=== PATIENT | male | born 1940 | race Caucasian/White ===

== ENCOUNTER 2019-08-29 16:43 | Outpatient (CLI) | payer MEDICARE, SELFPAY ==
[2019-08-29 18:15] LABS: Blood Urea Nitrogen 23 mg/dL (9-20); Calcium 9.2 mg/dL (8.4-10.2); Carbon Dioxide 28 mmol/L (22-30); Chloride 100 mmol/L (98-107); Estimated Glomerular Filt Rate 35; Glucose 119 mg/dL (75-110); Potassium 4.6 mmol/L (3.4-5.0); Sodium 140 mmol/L (137-145)
[2019-08-29 18:45] LABS: Hemoglobin A1C 5.9 % (<5.7)
[2019-08-29 19:22] LABS: Folic Acid 14.9 ng/mL (2.76->20)
== END 2019-08-29 16:44 | disposition home or self-care (01) ==
PROVIDERS: PCP Internal Medicine; Visit Provider Internal Medicine
DX: I10 Essential (primary) hypertension (principal); E11.9 Type 2 diabetes mellitus without complications; D51.0 Vitamin B12 deficiency anemia due to intrinsic factor deficiency; E03.9 Hypothyroidism, unspecified; E55.9 Vitamin D deficiency, unspecified
CPT/HCPCS: 36415; 80048; 82306; 82607; 82746; 83036; 84443

== ENCOUNTER 2019-09-20 17:06 | Outpatient (CLI) | payer MEDICARE, SELFPAY ==
[2019-09-20 17:27] LABS: Basophils Percent Auto 0.7 % (0.2-1.2); Eosinophils Absolute Auto 0.1 K/mm3 (0-0.3); Eosinophils Percent Auto 2.4 % (0-4.4); Hematocrit 42.5 % (42.0-52.0); Hemoglobin 14.3 g/dL (14.0-18.0); Immature Granulocyte Absolute 0.05 K/mm3 (0.00-0.031); Immature Granulocyte Percent A 1.1 % (0-0.5); Immature Platelet Fraction Pct 2.6 % (0.9-11.2); Mean Corpuscular HGB Conc 33.6 g/dl (32-36); Mean Corpuscular Volume 86.2 fl (80-100); Mean Platelet Volume 10.1 fl (7.4-10.4); Monocytes Absolute Auto 0.3 K/mm3 (0.1-0.6); Neutrophils Absolute Auto 2.7 K/mm3 (1.3-6.7); Neutrophils Percent Auto 60.8 % (45.5-73.1); Platelet Count Result 137 k/mm3 (150-375); Red Blood Count 4.93 M/mm3 (4.6-6.20); Red Cell Distribution Width 14.3 % (11.5-14.5); White Blood Count 4.5 K/mm3 (4.5-10.0)
[2019-09-20 18:30] LABS: Creatinine Urine 28.4 mg/dL
[2019-09-20 18:34] LABS: MALB Creatinine Ratio 51.1 mg/g (0-30); Microalbumin Urine Random 14.5 mg/L (0-16.7)
[2019-09-20 18:44] LABS: Alanine Aminotransferase 26 U/L (4-50); Alkaline Phosphatase 63 U/L (38-126); Aspartate Amino Transferase 21 U/L (17-59); Bilirubin,Total 0.4 mg/dL (0.2-1.3); Blood Urea Nitrogen 15 mg/dL (9-20); Calcium 8.9 mg/dL (8.4-10.2); Carbon Dioxide 29 mmol/L (22-30); Chloride 104 mmol/L (98-107); Cholesterol 144 mg/dL (0-200); Estimated Glomerular Filt Rate 42; Glucose 123 mg/dL (75-110); HDL Direct 55 mg/dL; Sodium 141 mmol/L (137-145); Triglycerides 91 mg/dL (<150)
[2019-09-20 18:55] LABS: LDL Cholesterol Direct 76 mg/dL
== END 2019-09-20 17:07 | disposition home or self-care (01) ==
PROVIDERS: PCP Internal Medicine; Visit Provider Nurse Practitioner
DX: E11.9 Type 2 diabetes mellitus without complications (principal); E03.9 Hypothyroidism, unspecified; D63.1 Anemia in chronic kidney disease; N18.9 Chronic kidney disease, unspecified
CPT/HCPCS: 36415; 80053; 80061; 82043; 83036; 84443; 85025; 85055

== ENCOUNTER 2020-03-06 16:09 | Outpatient (CLI) | payer MEDICARE, SELFPAY ==
[2020-03-06 17:38] LABS: Basophils Percent Auto 0.6 % (0.2-1.2); Eosinophils Absolute Auto 0.1 K/mm3 (0-0.3); Eosinophils Percent Auto 1.7 % (0-4.4); Hematocrit 45.4 % (42.0-52.0); Hemoglobin 15.3 g/dL (14.0-18.0); Immature Granulocyte Absolute 0.02 K/mm3 (0.00-0.031); Immature Granulocyte Percent A 0.3 % (0-0.5); Immature Platelet Fraction Pct 3.3 % (0.9-11.2); Lymphocytes Absolute Auto 1.36 K/mm3 (0.9-3.2); Lymphocytes Percent Auto 20.8 % (18.3-44.2); Mean Corpuscular HGB Conc 33.7 g/dl (32-36); Mean Corpuscular Hemoglobin 28.5 pg (26-34); Mean Corpuscular Volume 84.7 fl (80-100); Mean Platelet Volume 10.6 fl (7.4-10.4); Monocytes Absolute Auto 0.7 K/mm3 (0.1-0.6); Monocytes Percent Auto 10.9 % (2.6-8.5); Neutrophils Absolute Auto 4.3 K/mm3 (1.3-6.7); Neutrophils Percent Auto 65.7 % (45.5-73.1); Platelet Count Result 122 k/mm3 (150-375); Red Blood Count 5.36 M/mm3 (4.6-6.20); White Blood Count 6.5 K/mm3 (4.5-10.0)
[2020-03-06 17:49] LABS: Alanine Aminotransferase 9 U/L (4-50); Albumin Level 4.5 g/dL (3.5-5.1); Alkaline Phosphatase 70 U/L (38-126); Anion Gap 9 mmol/L (8-16); Aspartate Amino Transferase 14 U/L (17-59); Bilirubin,Total 0.8 mg/dL (0.2-1.3); Blood Urea Nitrogen 26 mg/dL (9-20); Calcium 9.2 mg/dL (8.4-10.2); Carbon Dioxide 27 mmol/L (22-30); Chloride 101 mmol/L (98-107); Cholesterol 154 mg/dL (0-200); Estimated Glomerular Filt Rate 35; Glucose 146 mg/dL (75-110); HDL Direct 60 mg/dL; Potassium 4.3 mmol/L (3.4-5.0); Sodium 137 mmol/L (137-145); Triglycerides 70 mg/dL (<150)
[2020-03-06 18:00] LABS: LDL Cholesterol Direct 68 mg/dL
[2020-03-06 18:15] LABS: Hemoglobin A1C 5.8 % (<5.7)
[2020-03-06 18:19] LABS: Thyroid Stimulating Hormone 0.201 uIU/mL (0.465-4.680)
== END 2020-03-06 16:10 | disposition home or self-care (01) ==
LOC: ANHLAB 16:14
PROVIDERS: PCP Internal Medicine; Visit Provider Nurse Practitioner
DX: E03.9 Hypothyroidism, unspecified (principal); N18.9 Chronic kidney disease, unspecified; D63.1 Anemia in chronic kidney disease; E11.9 Type 2 diabetes mellitus without complications
CPT/HCPCS: 36415; 80053; 80061; 83036; 84443; 85025; 85055

== ENCOUNTER 2020-03-21 00:31 | Outpatient (CLI) | payer MEDICARE, SELFPAY ==
[2020-03-22 13:39] LABS: SARS-CoV-2 RNA PCR Negative
== END 2020-03-21 00:32 | disposition home or self-care (01) ==
LOC: ANHCOVIDDT 00:31
PROVIDERS: PCP Internal Medicine; Visit Provider Internal Medicine Gastroenterology
DX: Z01.812 Encounter for preprocedural laboratory examination (principal); Z11.59 Encounter for screening for other viral diseases
CPT/HCPCS: 87635; C9803; U0003

== ENCOUNTER 2020-03-24 01:31 | Day surgery (SDC) | payer MEDICARE, SELFPAY ==
[2020-03-14 09:04] VITALS: BMI 32.0
[2020-03-24] MEDS: LACTATED RINGERS 1,000 ML 150 ML IV CONT (08:03)
[2020-03-24 08:06] VITALS: BP 152/94; PULSE 63; RESP 18; TEMP 36.6; O2SAT 99; BMI 30.4
[2020-03-24 08:07] LABS: Glucose Point of Care 92 (65-105)
--- NOTE | 2020-03-24 08:40 | P.HP_ITS ---
History of Present Illness History of Present Illness Consent: Risks, benefits, and alternatives have been discussed and questions answered. Patient agrees to proceed with procedure. Chief complaint: neoplasm screening Narrative: Renzo Guadalupe is a 79 year old W male with a history of adenocarcinoma the left colon diagnosed in 2005. Patient underwent partial left colon resection. Did not receive any chemotherapy reportedly lymph nodes were negative. For patient had a colonoscopy in 2006 in [facility]. Three small polyps removed. I saw the patient for the 1st time in 2010 for colonoscopy in the transverse colon tubular adenoma was removed. Shortly thereafter patient had a CT scan of the abdomen and pelvis for another reason was found to have metastatic disease to the liver and renal lesion. 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 Patient's last CT scan was approximately 5 years ago there was no evidence of disease. He was referred for colonoscopy secondary to his previous history of colon cancer and increasing constipation. [facility] Surgical History Surgical History (Updated 09/03/19 @ 13:34 by JERMAINE Andres) S/P tooth extraction Social History Social History Smoking status: Never smoker Alcohol intake: never Living arrangements: with family Spiritual care concerns: No Meds Home Medications and Allergies Home Medications Medication Instructions Recorded Confirmed Type lisinopril 20 mg tablet See Rx Instructions .ROUTE 10/22/19 03/14/20 Rx .COMPLEX #180 tablet amlodipine 5 mg tablet 5 mg PO DAILY #90 tablet 12/25/19 03/14/20 Rx omeprazole 20 mg capsule,delayed See Rx Instructions .ROUTE 01/07/20 03/14/20 Rx release .COMPLEX #90 cap tamsulosin 0.4 mg capsule 0.4 mg PO DAILY #90 cap 03/03/20 03/14/20 Rx levothyroxine 112 mcg tablet 112 mcg PO DAILY #90 tablet 03/11/20 03/14/20 Rx terazosin 1 mg PO DAILY 03/14/20 03/14/20 History linagliptin 5 mg tablet 5 mg PO DAILY #90 tablet 03/18/20 03/24/20 Rx Allergies Allergy/AdvReac Type Severity Reaction Status Date / Time No Known Allergies Allergy Unverified 03/24/20 07:53 Vital Signs Vital Signs - 24 hr 03/24/20 08:06 Temperature 36.6 C Pulse Rate 63 Respiratory Rate 18 Blood Pressure 152/94 H Pulse Oximetry 99 Exam Const: Orientation/consciousness: patient oriented x3 Resp: Auscultation: clear to auscultation bilaterally Cardio: Rate: regular rate Rhythm: regular rhythm Heart sounds: no murmurs GI: GI Palp: Yes Soft to palpation, No Tenderness to palpation present (GI), Yes No hepatosplenomegaly present and No Palpable mass present Auscultation: normal bowel sounds Neuro: General: patient oriented x3 and no focal motor deficits Extrem: General: no pedal edema Assessment and Plan Additional Plan Screening colonoscopy secondary history of metastatic colon cancer as described above
--- NOTE | 2020-03-24 08:46 | WPDANESEPPF ---
Anes - Initial Pre Proc Eval Procedure: Operation Date: 03/24/20 09:00 Proposed Procedures p Screening Colonoscopy - Carlos Allen MD Date/Time: 03/24/20 08:46 Surgeon: Carlos Allen MD Pre Op Diagnosis: neoplasm screening Patient Data Age: 79 Gender: M Height: 6 ft 1 in Weight: 104.9 kg Last Vital Signs Temp 97.8 F 03/24/20 08:06 Pulse 63 03/24/20 08:06 Resp 18 03/24/20 08:06 BP 152/94 H 03/24/20 08:06 Pulse Ox 99 03/24/20 08:06 Allergies Allergy/AdvReac Type Severity Reaction Status Date / Time No Known Allergies Allergy Unverified 03/24/20 07:53 Home Medications Medication Instructions Recorded Confirmed Type lisinopril 20 mg tablet See Rx Instructions .ROUTE 10/22/19 03/14/20 Rx .COMPLEX #180 tablet amlodipine 5 mg tablet 5 mg PO DAILY #90 tablet 12/25/19 03/14/20 Rx omeprazole 20 mg capsule,delayed See Rx Instructions .ROUTE 01/07/20 03/14/20 Rx release .COMPLEX #90 cap tamsulosin 0.4 mg capsule 0.4 mg PO DAILY #90 cap 03/03/20 03/14/20 Rx levothyroxine 112 mcg tablet 112 mcg PO DAILY #90 tablet 03/11/20 03/14/20 Rx terazosin 1 mg PO DAILY 03/14/20 03/14/20 History linagliptin 5 mg tablet 5 mg PO DAILY #90 tablet 03/18/20 03/24/20 Rx Laboratory Tests 03/24/20 08:01 POC Capillary Glucose 92 mg/dl mg/dl (65-105) Patient hx anesthesia problems: none Family hx anesthesia problems: none PMFSH Past Medical History Medical History (Updated 03/24/20 @ 08:46 by Abdoulaye Escamilla MD) Essential (primary) hypertension (02/28/19) Hypothyroidism, unspecified Type 2 diabetes mellitus without complications Surgical History Surgical History (Updated 09/03/19 @ 13:34 by JERMAINE Andres) S/P tooth extraction Social History Social History Smoking status: Never smoker Alcohol intake: never Living arrangements: with family Spiritual care concerns: No Anes - Eval Final PreProcedure Day of Procedure 03/24/20 08:46 Patient weight: overweight Heart: regular rate and rhythm Lungs: clear to auscultation Airway: Mallampati scale class III Neurological: alert and oriented Last oral intake: >/= 8 hours ASA classification: III Emergent: no Anesthetic plan: proceed Anesthesia type and monitoring: general GIVS and standard monitoring Informed Consent: The patient's anesthetic plan and its attendant risks and benefits were discussed with the patient/family/POA. Questions were solicited and answers provided to the satisfaction of the patient/family/POA.
[2020-03-24 10:18] VITALS: BP 113/67; PULSE 56; RESP 14; O2SAT 99
[2020-03-24 10:28] VITALS: BP 124/64; PULSE 69; RESP 14; O2SAT 99
[2020-03-24 10:38] VITALS: BP 134/73; PULSE 58; RESP 14; O2SAT 99
== END 2020-03-24 10:59 | disposition home or self-care (01) ==
PROVIDERS: PCP Internal Medicine; Visit Provider Internal Medicine Gastroenterology
PROC: 0DJD8ZZ Inspection of Lower Intestinal Tract, Via Natural or Artificial Opening Endoscopic (ICD-10-PCS; CPT 45378; principal; 2020-03-24 09:00)
DX: Z12.11 Encounter for screening for malignant neoplasm of colon (principal); D12.0 Benign neoplasm of cecum; D12.2 Benign neoplasm of ascending colon; K64.8 Other hemorrhoids; Z85.038 Personal history of other malignant neoplasm of large intestine; Z98.0 Intestinal bypass and anastomosis status; Z90.49 Acquired absence of other specified parts of digestive tract; I10 Essential (primary) hypertension; E03.9 Hypothyroidism, unspecified; E11.9 Type 2 diabetes mellitus without complications; Z79.84 Long term (current) use of oral hypoglycemic drugs; Z85.05 Personal history of malignant neoplasm of liver; Z85.528 Personal history of other malignant neoplasm of kidney; Z90.5 Acquired absence of kidney
CPT/HCPCS: 45385; 88305; J2704; J7120

== ENCOUNTER 2020-08-11 17:00 | Outpatient (CLI) | payer MEDICARE, SELFPAY ==
[2020-08-11 17:54] LABS: Alanine Aminotransferase 9 U/L (4-50); Albumin Level 4.2 g/dL (3.5-5.1); Alkaline Phosphatase 70 U/L (38-126); Anion Gap 4 mmol/L (8-16); Aspartate Amino Transferase 17 U/L (17-59); Bilirubin,Total 0.7 mg/dL (0.2-1.3); Blood Urea Nitrogen 14 mg/dL (9-20); Calcium 9.3 mg/dL (8.4-10.2); Carbon Dioxide 30 mmol/L (22-30); Chloride 108 mmol/L (98-107); Cholesterol 169 mg/dL (0-200); Estimated Glomerular Filt Rate 39; Glucose 125 mg/dL (75-110); HDL Direct 70 mg/dL; Potassium 4.1 mmol/L (3.4-5.0); Sodium 142 mmol/L (137-145); Triglycerides 79 mg/dL (<150)
[2020-08-11 18:05] LABS: LDL Cholesterol Direct 79 mg/dL
[2020-08-11 18:19] LABS: Hemoglobin A1C 5.5 % (<5.7)
[2020-08-11 18:24] LABS: Thyroid Stimulating Hormone 0.234 uIU/mL (0.465-4.680)
== END 2020-08-11 17:01 | disposition home or self-care (01) ==
LOC: ANHLAB 17:03
PROVIDERS: PCP Internal Medicine; Visit Provider Internal Medicine
DX: E78.5 Hyperlipidemia, unspecified (principal); I10 Essential (primary) hypertension; E11.9 Type 2 diabetes mellitus without complications
CPT/HCPCS: 36415; 80053; 80061; 83036; 84443

== ENCOUNTER 2020-12-15 15:45 | Outpatient (CLI) | payer MEDICARE, SELFPAY ==
--- NOTE | ~2020-12-15 | CT_ITS ---
EXAMINATION: CT abdomen pelvis wo con DATE: 12/15/2020 16:13 INDICATION: Abdominal distention TECHNIQUE: Computed tomography (CT) of the abdomen and pelvis was performed without intravenous contr ast. Automated exposure control and iterative reconstruction technique were employed. The dose-length product was 1250.16 mGy-cm. COMPARISON: 09/18/2013 FINDINGS: Mild to moderate emphysema at the bilateral lung bases. Large calcified left lower lobe nodule consis tent with old granulomatous disease. Bronchiectasis with mucous plugging in the right middle lobe. He art size is normal. No pericardial or pleural effusion. Small sliding-type hiatal hernia. Splenomegal y measuring 16.7 cm in length. A few scattered hepatic and splenic calcific lesions consistent with o ld granulomatous disease. Postoperative change of prior right hemihepatectomy and cholecystectomy. Pa ncreas and bilateral adrenal glands are normal. Prostatomegaly. There is marked distention of the eran dder which measures 29.5 x 22.1 x 32.1 cm with moderate bilateral hydroureteronephrosis suggesting ou tlet obstruction. 2.2 cm cyst at the lower pole of the right kidney. Chronic mild scarring at the low er pole of the left kidney likely related to prior resection or ablation of an earlier enhancing like ly renal cell carcinoma. Postoperative change of prior partial distal colectomy with anastomotic sutu re line along the sigmoid colon. No bowel obstruction. Normal appendix. No free intraperitoneal gas o r fluid. No pathologically enlarged abdominal or pelvic lymphadenopathy. There are bridging osteophyt es at multiple levels in the lower thoracic spine along with fusion across the spinous processes cons istent with chronic T11, L1 and L4 hemangiomas. No suspicious lytic or blastic bone lesions. With dif fuse idiopathic skeletal hyperostosis (DISH). IMPRESSION: 1. Postoperative change of prior sigmoid colon resection, right hemihepatectomy with cholecystectomy and lower pole left kidney renal cell carcinoma resection/ablation. No evident metastatic disease. 2. Marked distention of the bladder likely related to outlet obstruction from the enlarged prostate w ith likely secondary moderate bilateral hydronephrosis. 3. Small sliding-type hiatal hernia. 4. Chronic nonspecific splenomegaly. Reviewed, dictated and finalized at location A. IMPRESSION: 1. Postoperative change of prior sigmoid colon resection, right hemihepatectomy with cholecystectomy and lower pole left kidney renal cell carcinoma resection /ablation. No evident metastatic disease. 2. Marked distention of the bladder likely related to outlet obstruction from t he enlarged prostate with likely secondary moderate bilateral hydronephrosis. 3. Small sliding-type hiatal hernia. 4. Chronic nonspecific splenomegaly.
== END 2020-12-15 15:46 | disposition home or self-care (01) ==
PROVIDERS: PCP Internal Medicine; Visit Provider Nurse Practitioner
DX: R14.0 Abdominal distension (gaseous) (principal); Z85.038 Personal history of other malignant neoplasm of large intestine; Z85.53 Personal history of malignant neoplasm of renal pelvis; K44.9 Diaphragmatic hernia without obstruction or gangrene; R16.1 Splenomegaly, not elsewhere classified
CPT/HCPCS: 74176

== ENCOUNTER 2021-02-11 10:22 | Outpatient (CLI) | payer MEDICARE, SELFPAY ==
[2021-02-11 11:17] LABS: Hemoglobin A1C 5.7 % (<5.7)
[2021-02-11 11:18] LABS: Alanine Aminotransferase 9 U/L (4-50); Albumin Level 4.1 g/dL (3.5-5.1); Alkaline Phosphatase 73 U/L (38-126); Anion Gap 6 mmol/L (8-16); Aspartate Amino Transferase 15 U/L (17-59); Bilirubin,Total 0.7 mg/dL (0.2-1.3); Blood Urea Nitrogen 17 mg/dL (9-20); Calcium 9.2 mg/dL (8.4-10.2); Carbon Dioxide 28 mmol/L (22-30); Chloride 111 mmol/L (98-107); Cholesterol 156 mg/dL (0-200); Estimated Glomerular Filt Rate 34; Glucose 121 mg/dL (65-110); HDL Direct 75 mg/dL; Potassium 4.7 mmol/L (3.4-5.0); Sodium 145 mmol/L (137-145); Triglycerides 62 mg/dL (<150)
[2021-02-11 11:29] LABS: LDL Cholesterol Direct 61 mg/dL
== END 2021-02-11 10:23 | disposition home or self-care (01) ==
PROVIDERS: PCP Internal Medicine; Visit Provider Nurse Practitioner
DX: E78.5 Hyperlipidemia, unspecified (principal); E11.9 Type 2 diabetes mellitus without complications
CPT/HCPCS: 36415; 80053; 80061; 83036

== ENCOUNTER 2021-03-02 09:36 | Outpatient (CLI) | payer MEDICARE, SELFPAY ==
--- NOTE | ~2021-03-02 | NM_ITS ---
EXAMINATION: NM briseida stress w perfusion DATE: 03/02/2021 12:40 INDICATION: Dyspnea TECHNIQUE: Rest images were obtained following intravenous administration of 9.8 mCi Tc99m tetrofosmi n (Myoview). The patient was infused intravenously with Lexiscan (Regadenoson). Then, 25.9 mCi Tc99m tetrofosmin (Myoview) was administered intravenously, and stress images were obtained. Data was recon structed into short axis and horizontal and vertical long axis SPECT images. Gated SPECT images were also obtained. COMPARISON: None. FINDINGS: There is no definite reversible or fixed perfusion abnormality to suggest ischemia or infar ction. There is normal left ventricular chamber size, wall motion and ejection fraction. Left ventr icular ejection fraction measures >70%. IMPRESSION: 1. Normal myocardial perfusion at rest and during stress. 2. Left ventricular ejection fraction measuring >70%. Reviewed, dictated and finalized at location B.
--- NOTE | 2021-03-02 11:04 | EST_ITS ---
Patient Info Name: Renzo Guadalupe Age: 80 years : 1940 Gender: Male Ht: 73 in Wt: 250 lbs BSA: 2.45 m2 Exam Date: 03/02/2021 11:20 AM Exam Location: [facility] Stress Patient Status: Outpatient Admit Date: 03/02/2021 Staff Ordering Physician: Renan José DO Attending Provider: Renan José DO Exercise Technologist: Dinah Kimball RDCS Exercise Physician: Christoph Howard DO Exam Type: CA stress briseida w NM Study Info Indications R06.00 - Dyspnea, unspecified A regadenoson stress test was performed. Summary 1. 1. Negative lexiscan stress test for ischemic ST changes by ECG criteria. 2. 2. Baseline hypertension. 3. 3. Nuclear scan to follow and will be reported separately. Please correlate with it. 4. 4. Patient informed of the above results. Protocol: Lexiscan Stress ECG Details Stage: REST Duration (min): 5 min : 56 sec HR (bpm): 66 SBP (mmHg): 193 DBP (mmHg): 84 Stage: REST Duration (min): 11 min : 14 sec HR (bpm): 66 SBP (mmHg): 193 DBP (mmHg): 84 Stage: STAGE 1 Duration (min): 1 min : 0 sec HR (bpm): 96 SBP (mmHg): 193 DBP (mmHg): 84 Stage: RECOVERY Duration (min): 1 min : 0 sec HR (bpm): 89 SBP (mmHg): 171 DBP (mmHg): 79 Stage: RECOVERY Duration (min): 2 min : 0 sec HR (bpm): 82 SBP (mmHg): 170 DBP (mmHg): 81 Stage: RECOVERY Duration (min): 3 min : 0 sec HR (bpm): 84 SBP (mmHg): 176 DBP (mmHg): 81 Stage: RECOVERY Duration (min): 3 min : 5 sec HR (bpm): 82 SBP (mmHg): 176 DBP (mmHg): 81 Rest HR: 66 bpm Peak HR: 97 bpm Rest Sys BP: 193 mmHg Peak Sys BP: 176 mmHg Max Pred HR: 142 bpm % Max Pred HR: 68 % Target HR: 121 bpm Max RPP: 17,072 bpm*mmHg Termination Reason: Completed protocol Cardiac Symptoms: Shortness of breath Total Time: 1 min : 0 sec Rest Pang BP: 84 mmHg Peak Pang BP: 81 mmHg Total Dose: 0.4 mg Resting ECG Sinus rhythm, PVC's, IRBBB. Stress ECG No ST changes. Arrhythmias None. Report Signatures
== END 2021-03-02 09:37 | disposition home or self-care (01) ==
PROVIDERS: PCP Internal Medicine; Visit Provider Internal Medicine
DX: R06.00 Dyspnea, unspecified (principal)
CPT/HCPCS: 78452; 93017; A9502; J2785

== ENCOUNTER 2021-06-15 15:35 | Outpatient (CLI) | payer MEDICARE, SELFPAY ==
[2021-06-15 16:17] LABS: Basophils Percent Auto 0.6 % (0.2-1.2); Eosinophils Absolute Auto 0.2 K/mm3 (0-0.3); Hematocrit 39.4 % (42.0-52.0); Hemoglobin 13.6 g/dL (14.0-18.0); Immature Granulocyte Absolute 0.01 K/mm3 (0.00-0.031); Immature Granulocyte Percent A 0.2 % (0-0.5); Lymphocytes Absolute Auto 0.98 K/mm3 (0.9-3.2); Lymphocytes Percent Auto 20.9 % (18.3-44.2); Mean Corpuscular HGB Conc 34.5 g/dl (32-36); Mean Corpuscular Hemoglobin 29.8 pg (26-34); Mean Corpuscular Volume 86.4 fl (80-100); Mean Platelet Volume 10.4 fl (7.4-10.4); Monocytes Absolute Auto 0.4 K/mm3 (0.1-0.6); Monocytes Percent Auto 8.1 % (2.6-8.5); Neutrophils Absolute Auto 3.1 K/mm3 (1.3-6.7); Neutrophils Percent Auto 66.2 % (45.5-73.1); Platelet Count Result 86 k/mm3 (150-375); Red Blood Count 4.56 M/mm3 (4.6-6.20); Red Cell Distribution Width 13.6 % (11.5-14.5); White Blood Count 4.7 K/mm3 (4.5-10.0)
[2021-06-15 16:26] LABS: Alanine Aminotransferase 11 U/L (4-50); Albumin Level 4.2 g/dL (3.5-5.1); Alkaline Phosphatase 72 U/L (38-126); Anion Gap 9 mmol/L (8-16); Aspartate Amino Transferase 16 U/L (17-59); Bilirubin,Total 0.5 mg/dL (0.2-1.3); Blood Urea Nitrogen 19 mg/dL (9-20); Calcium 9.2 mg/dL (8.4-10.2); Carbon Dioxide 27 mmol/L (22-30); Chloride 105 mmol/L (98-107); Cholesterol 159 mg/dL (0-200); Estimated Glomerular Filt Rate 42; Glucose 142 mg/dL (65-110); HDL Direct 72 mg/dL; Potassium 4.1 mmol/L (3.4-5.0); Sodium 141 mmol/L (137-145); Triglycerides 61 mg/dL (<150)
[2021-06-15 16:37] LABS: LDL Cholesterol Direct 66 mg/dL
[2021-06-15 16:56] LABS: Thyroid Stimulating Hormone 0.266 uIU/mL (0.465-4.680)
[2021-06-15 19:04] LABS: Hemoglobin A1C 5.6 % (<5.7)
== END 2021-06-15 15:36 | disposition home or self-care (01) ==
PROVIDERS: PCP Internal Medicine; Visit Provider Internal Medicine
DX: E78.5 Hyperlipidemia, unspecified (principal); E11.9 Type 2 diabetes mellitus without complications; N18.9 Chronic kidney disease, unspecified; D63.1 Anemia in chronic kidney disease; I10 Essential (primary) hypertension; E03.9 Hypothyroidism, unspecified
CPT/HCPCS: 36415; 80053; 80061; 83036; 84443; 85025

== ENCOUNTER 2021-12-21 17:06 | Outpatient (CLI) | payer MEDICARE, SELFPAY ==
[2021-12-21 17:34] LABS: Alanine Aminotransferase 10 U/L (6-50); Albumin Level 4.3 g/dL (3.5-5.1); Alkaline Phosphatase 68 U/L (38-126); Anion Gap 7 mmol/L (8-16); Aspartate Amino Transferase 13 U/L (17-59); Bilirubin,Total 0.4 mg/dL (0.2-1.3); Blood Urea Nitrogen 16 mg/dL (9-20); Calcium 8.7 mg/dL (8.4-10.2); Carbon Dioxide 28 mmol/L (22-30); Chloride 105 mmol/L (98-107); Cholesterol 162 mg/dL (0-200); Estimated Glomerular Filt Rate 37; Glucose 219 mg/dL (65-110); HDL Direct 60 mg/dL; Potassium 4.2 mmol/L (3.4-5.0); Sodium 140 mmol/L (137-145); Triglycerides 94 mg/dL (<150)
[2021-12-21 17:37] LABS: Hemoglobin A1C 5.7 % (<5.7)
[2021-12-21 17:45] LABS: LDL Cholesterol Direct 68 mg/dL
== END 2021-12-21 17:07 | disposition home or self-care (01) ==
LOC: ANHLAB 17:07
PROVIDERS: PCP Internal Medicine; Visit Provider Nurse Practitioner
DX: E78.5 Hyperlipidemia, unspecified (principal); E03.9 Hypothyroidism, unspecified; E11.9 Type 2 diabetes mellitus without complications
CPT/HCPCS: 36415; 80053; 80061; 83036; 84443

== ENCOUNTER 2022-06-22 15:49 | Outpatient (CLI) | payer MEDICARE, SELFPAY ==
[2022-06-22 16:24] LABS: Alanine Aminotransferase 12 U/L (6-50); Albumin Level 4.5 g/dL (3.5-5.1); Alkaline Phosphatase 66 U/L (38-126); Anion Gap 7 mmol/L (8-16); Aspartate Amino Transferase 14 U/L (17-59); Bilirubin,Total 0.5 mg/dL (0.2-1.3); Blood Urea Nitrogen 15 mg/dL (9-20); Calcium 8.6 mg/dL (8.4-10.2); Carbon Dioxide 28 mmol/L (22-30); Chloride 106 mmol/L (98-107); Cholesterol 179 mg/dL (0-200); Estimated Glomerular Filt Rate 31; Glucose 166 mg/dL (65-110); HDL Direct 67 mg/dL; Potassium 4.2 mmol/L (3.4-5.0); Sodium 141 mmol/L (137-145); Triglycerides 119 mg/dL (<150)
[2022-06-22 16:37] LABS: LDL Cholesterol Direct 75 mg/dL
[2022-06-22 17:00] LABS: Creatinine Urine 31.2 mg/dL
[2022-06-22 17:05] LABS: MALB Creatinine Ratio 530.8 mg/g (0-30); Microalbumin Urine Random 165.6 mg/L (0-16.7)
[2022-06-22 17:21] LABS: Vitamin D 25 Hydroxy 23.5 ng/mL
[2022-06-22 17:22] LABS: Hemoglobin A1C 5.9 % (<5.7)
== END 2022-06-22 15:50 | disposition home or self-care (01) ==
LOC: ANHLAB 15:51
PROVIDERS: PCP Internal Medicine; Visit Provider Internal Medicine
DX: E78.5 Hyperlipidemia, unspecified (principal); E11.9 Type 2 diabetes mellitus without complications; I10 Essential (primary) hypertension; E03.9 Hypothyroidism, unspecified; E55.9 Vitamin D deficiency, unspecified
CPT/HCPCS: 36415; 80053; 80061; 82043; 82306; 83036; 84443

== ENCOUNTER 2022-08-28 17:53 | Emergency (ER) | payer MEDICARE, SELFPAY ==
--- NOTE | ~2022-08-28 | XR_ITS ---
EXAM: XR foot RT min 3V DATE: 08/28/2022 18:29 HISTORY: pain and swelling on distal 1st metatarsal, no inj . COMPARISON: None available. FINDINGS: Normal mineralization. No fracture or dislocation. No lytic or blastic lesion. Soft tissue swelling over the first MTP with amorphous calcification. Small, circumscribed periarticular erosion s with maintenance of the first MTP joint space. Plantar and Achilles enthesopathy. Additional scatte red degenerative change in the midfoot joints and toes No periosteal change. IMPRESSION: First MTP arthropathy, may represent gout in the appropriate clinical context. Reviewed, dictated and finalized at location K. CEMENTER IMPRESSION: First MTP arthropathy, may represent gout in the appropriate clinic al context.
--- NOTE | 2022-08-28 18:00 | ED.EXTPRO ---
HPI - Extremity Problem General Chief complaint: Extremity Injury, Lower Stated complaint: rt foot pain Time Seen by Provider: 08/28/22 18:10 Source: patient Mode of arrival: ambulatory Limitations: no limitations History of Present Illness HPI Narrative: Mr. Guadalupe is an 82-year-old male patient presenting to the clinic today with complaints of right great toe pain x3 days. He reports that it is painful to touch however he does not have much discomfort when he is up walking. He thinks it may be related to gout. His blood pressure initially was 217/97 electronically in the clinic today. Manual blood pressures were obtained and were 204/98 and 188/92. He does have history of high blood pressure. States he has not taken his 2nd dose of blood pressure medications tonight. He does report that he is in quite a bit of pain rating his pain 8/10 currently. He denies any headache, visual changes, dizziness, chest pain, or shortness of breath. 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 Related Data Home Medications Medication Instructions Recorded Confirmed finasteride 5 mg tablet 5 mg PO DAILY 06/19/21 08/28/22 lisinopril 20 mg tablet 20 mg PO DAILY 07/22/22 08/28/22 Allergies Allergy/AdvReac Type Severity Reaction Status Date / Time No Known Allergies Allergy Verified 08/28/22 18:13 Review of Systems Review of Systems: Pertinent positives per HPI. Patient denies any fever, chills, rash, headache, visual changes, dizziness, cough, runny nose, sore throat, shortness of breath, chest pain, palpitations, nausea, vomiting, diarrhea, constipation, abdominal pain, or any urinary issues. [facility] Past Medical History Medical History Essential (primary) hypertension (02/28/19) Hypothyroidism, unspecified Type 2 diabetes mellitus without complications Surgical History Surgical History S/P tooth extraction Family History Family History Father Family history of chronic obstructive pulmonary disease Patient's father is Mother Patient's mother is Social History Social History Smoking status: Never smoker Alcohol intake: never Substance use: never Substance use type: does not use Lack of Transportation: No Lack of Food: Never True Current Housing: I Have Housing Concerned About Future Housing: No Difficulty Paying Gas/Electric Bills: No Difficulty Paying for Meds: No Currently Unemployed: No Education: Trade/Vocational Certificate Difficulty w/ Childcare or Family Care: No Living arrangements: with family Gender identity (if verbalized by the patient): Male Sexual Orientation (if Verbalized by the Patient): Straight or Heterosexual Spiritual care concerns: No Comments At the time of my signature, I reviewed and agree with the nursing past medical, surgical, social, and family history. There is no relevant family history pertinent to the patient complaint. Exam Narrative: General: Well-developed, well nourished, in no apparent distress Head: Normocephalic, atraumatic. Left-sided facial droop. Left cochlear implant Cardio: Regular rate and rhythm, s1 and s2 normal, no murmur appreciated. Resp: Clear to auscultation bilaterally, no rhonchi, rales, wheezing or rubs. Musculoskeletal: No deformity, tender to palpation over the proximal lateral metatarsal of the right great toe with mild swelling without redness, limited range of motion of the 1st metatarsal due to pain, muscle strength strong and equal, peripheral pulse strong, no cyanosis, normal gait and station Course Course Emergency Course: Portions of this record may have been created with voice jr
[2022-08-28 18:07] VITALS: BP 204/98; PULSE 66; RESP 18; TEMP 36.6; O2SAT 99
[2022-08-28 19:32] VITALS: BP 174/82
== END 2022-08-28 19:20 | disposition left against medical advice (07) ==
PROVIDERS: Emergency Provider Nurse Practitioner Family; PCP Internal Medicine
DX: M10.9 Gout, unspecified (principal); I16.0 Hypertensive urgency; I10 Essential (primary) hypertension; E03.9 Hypothyroidism, unspecified; E11.9 Type 2 diabetes mellitus without complications
CPT/HCPCS: 73630; 81003; 99213; G0463

== ENCOUNTER 2022-09-28 15:43 | Outpatient (CLI) | payer MEDICARE, SELFPAY ==
--- NOTE | ~2022-09-28 | US_ITS ---
Renal-Bladder ultrasound Clinical History: Chronic kidney disease Technique: Real-time sonographic imaging of the kidneys and urinary bladder was performed. Findings: The right kidney measures 10.1 cm in length and the left kidney measures 10.5 cm. There is moderate to severe bilateral hydronephrosis. Renal cortical echogenicity is within normal limits. No renal mass lesion is identified. The urinary bladder is markedly distended at the time of this exam. No intraluminal echoes are identi fied. No abnormal wall thickening is seen. Impression: Moderate to severe bilateral hydronephrosis. Markedly distended urinary bladder. Reviewed, dictated and finalized at location . Impression: Moderate to severe bilateral hydronephrosis. Markedly distended urinary bladder.
[2022-09-28 17:27] LABS: Albumin Level 4.5 g/dL (3.5-5.1); Anion Gap 8 mmol/L (8-16); Blood Urea Nitrogen 14 mg/dL (9-20); Calcium 8.9 mg/dL (8.4-10.2); Carbon Dioxide 27 mmol/L (22-30); Chloride 104 mmol/L (98-107); Estimated Glomerular Filt Rate 34; Glucose 135 mg/dL (65-110); Potassium 4.3 mmol/L (3.4-5.0); Sodium 139 mmol/L (137-145)
[2022-09-28 17:36] LABS: Parathyroid Intact 75.2 pg/mL (7.5-53.5)
[2022-09-30 23:07] LABS: Albumin 4.1 g/dL (3.8-4.8); Alpha 1 Globulin 0.3 g/dL (0.2-0.3); Alpha 2 Globulin 0.6 g/dL (0.5-0.9); Beta 1 Globulin 0.5 g/dL (0.4-0.6); Protein, Total 6.7 g/dL (6.1-8.1)
[2022-10-04 00:03] LABS: Creatinine, Random Urine 27 mg/dL (20-320); Total Protein/Creatinine Ratio 630 mg/g creat (25-148)
== END 2022-09-28 15:44 | disposition home or self-care (01) ==
PROVIDERS: PCP Internal Medicine; Visit Provider Internal Medicine Nephrology
DX: N25.81 Secondary hyperparathyroidism of renal origin (principal); N18.32 Chronic kidney disease, stage 3b; N13.30 Unspecified hydronephrosis
CPT/HCPCS: 36415; 76775; 80069; 82570; 83970; 84155; 84156; 84165; 84166

== ENCOUNTER 2023-02-04 16:05 | Outpatient (CLI) | payer MEDICARE, SELFPAY ==
[2023-02-04 16:57] LABS: Creatinine Urine 34.2 mg/dL; Total Protein Urine Random 23 mg/dL; Ur Ttl Prot Creatinine Ratio 0.67 mg/mg (0-0.20)
[2023-02-04 17:00] LABS: Albumin Level 4.4 g/dL (3.5-5.1); Anion Gap 10 mmol/L (8-16); Blood Urea Nitrogen 20 mg/dL (9-20); Calcium 9.2 mg/dL (8.4-10.2); Carbon Dioxide 28 mmol/L (22-30); Chloride 103 mmol/L (98-107); Estimated Glomerular Filt Rate 32; Glucose 130 mg/dL (65-110); Phosphorus 5.3 mg/dL (2.5-4.5); Potassium 4.5 mmol/L (3.4-5.0); Sodium 141 mmol/L (137-145)
== END 2023-02-04 16:06 | disposition home or self-care (01) ==
PROVIDERS: PCP Internal Medicine; Visit Provider Internal Medicine Nephrology
DX: E11.22 Type 2 diabetes mellitus with diabetic chronic kidney disease (principal); I12.9 Hypertensive chronic kidney disease with stage 1 through stage 4 chronic kidney disease, or unspecified chronic kidney disease; N18.32 Chronic kidney disease, stage 3b
CPT/HCPCS: 36415; 80069; 82570; 84156

== ENCOUNTER 2023-05-25 15:21 | Outpatient (CLI) | payer MEDICARE, SELFPAY ==
[2023-05-25 16:32] LABS: Albumin Level 4.6 g/dL (3.5-5.1); Anion Gap 11 mmol/L (8-16); Blood Urea Nitrogen 18 mg/dL (9-20); Calcium 8.9 mg/dL (8.4-10.2); Carbon Dioxide 27 mmol/L (22-30); Chloride 102 mmol/L (98-107); Estimated Glomerular Filt Rate 24; Glucose 98 mg/dL (65-110); Phosphorus 4.1 mg/dL (2.5-4.5); Potassium 4.3 mmol/L (3.4-5.0); Sodium 140 mmol/L (137-145)
[2023-05-25 16:33] LABS: Creatinine Urine 44.3 mg/dL; Total Protein Urine Random 32 mg/dL; Ur Ttl Prot Creatinine Ratio 0.72 mg/mg (0-0.20)
[2023-05-25 16:42] LABS: Parathyroid Intact 103.3 pg/mL (7.5-53.5)
== END 2023-05-25 15:22 | disposition home or self-care (01) ==
PROVIDERS: Visit Provider Internal Medicine Nephrology
DX: N18.32 Chronic kidney disease, stage 3b (principal); E11.22 Type 2 diabetes mellitus with diabetic chronic kidney disease; I12.9 Hypertensive chronic kidney disease with stage 1 through stage 4 chronic kidney disease, or unspecified chronic kidney disease; N25.81 Secondary hyperparathyroidism of renal origin; E55.9 Vitamin D deficiency, unspecified
CPT/HCPCS: 36415; 80069; 82306; 82570; 83970; 84156

== ENCOUNTER 2023-08-15 16:22 | Outpatient (CLI) | payer MEDICARE, SELFPAY ==
[2023-08-15 17:10] LABS: Creatinine Urine 33.7 mg/dL; Total Protein Urine Random 23 mg/dL; Ur Ttl Prot Creatinine Ratio 0.68 mg/mg (0-0.20)
[2023-08-15 17:16] LABS: Albumin Level 4.1 g/dL (3.5-5.1); Anion Gap 6 mmol/L (8-16); Blood Urea Nitrogen 13 mg/dL (9-20); Carbon Dioxide 28 mmol/L (22-30); Chloride 106 mmol/L (98-107); Estimated Glomerular Filt Rate 36; Glucose 132 mg/dL (65-110); Phosphorus 4.6 mg/dL (2.5-4.5); Potassium 4.1 mmol/L (3.4-5.0); Sodium 140 mmol/L (137-145)
== END 2023-08-15 16:23 | disposition home or self-care (01) ==
LOC: ANHLAB 16:25
PROVIDERS: Visit Provider Internal Medicine Nephrology
DX: I12.9 Hypertensive chronic kidney disease with stage 1 through stage 4 chronic kidney disease, or unspecified chronic kidney disease (principal); E11.22 Type 2 diabetes mellitus with diabetic chronic kidney disease; N18.32 Chronic kidney disease, stage 3b
CPT/HCPCS: 36415; 80069; 82570; 84156

== ENCOUNTER 2023-09-27 14:19 | Outpatient (CLI) | payer MEDICARE, SELFPAY ==
[2023-09-27 15:00] LABS: Albumin Level 4.6 g/dL (3.5-5.1); Anion Gap 7 mmol/L (8-16); Blood Urea Nitrogen 21 mg/dL (9-20); Calcium 9.4 mg/dL (8.4-10.2); Carbon Dioxide 28 mmol/L (22-30); Chloride 104 mmol/L (98-107); Estimated Glomerular Filt Rate 34; Glucose 163 mg/dL (65-110); Phosphorus 4.3 mg/dL (2.5-4.5); Potassium 3.9 mmol/L (3.4-5.0); Sodium 139 mmol/L (137-145)
== END 2023-09-27 14:20 | disposition home or self-care (01) ==
LOC: ANHLAB 14:23
PROVIDERS: PCP Registered Nurse; Visit Provider Internal Medicine Nephrology
DX: I12.9 Hypertensive chronic kidney disease with stage 1 through stage 4 chronic kidney disease, or unspecified chronic kidney disease (principal); E11.22 Type 2 diabetes mellitus with diabetic chronic kidney disease; N18.32 Chronic kidney disease, stage 3b
CPT/HCPCS: 36415; 80069

== ENCOUNTER 2024-01-31 14:16 | Outpatient (CLI) | payer MEDICARE, SELFPAY ==
[2024-01-31 14:58] LABS: Creatinine Urine 40.4 mg/dL; Total Protein Urine Random 14 mg/dL; Ur Ttl Prot Creatinine Ratio 0.35 mg/mg (0-0.20)
[2024-01-31 14:58] LABS: Albumin Level 4.2 g/dL (3.5-5.1); Anion Gap 12 mmol/L (4-12); Blood Urea Nitrogen 22 mg/dL (9-20); Calcium 9.2 mg/dL (8.4-10.2); Carbon Dioxide 24 mmol/L (22-30); Chloride 104 mmol/L (98-107); Estimated Glomerular Filt Rate 34; Glucose 127 mg/dL (65-110); Phosphorus 5.1 mg/dL (2.5-4.5); Potassium 4.4 mmol/L (3.4-5.0); Sodium 140 mmol/L (137-145)
[2024-01-31 15:12] LABS: Parathyroid Intact 55.1 pg/mL (7.5-53.5)
[2024-01-31 15:18] LABS: Vitamin D 25 Hydroxy 67.5 ng/mL
== END 2024-01-31 14:17 | disposition home or self-care (01) ==
LOC: ANHLAB 14:21
PROVIDERS: PCP Registered Nurse; Visit Provider Internal Medicine Nephrology
DX: E11.22 Type 2 diabetes mellitus with diabetic chronic kidney disease (principal); I12.9 Hypertensive chronic kidney disease with stage 1 through stage 4 chronic kidney disease, or unspecified chronic kidney disease; N18.32 Chronic kidney disease, stage 3b; E55.9 Vitamin D deficiency, unspecified; N25.81 Secondary hyperparathyroidism of renal origin
CPT/HCPCS: 36415; 80069; 82306; 82570; 83970; 84156

== ENCOUNTER 2024-05-24 14:52 | Outpatient (CLI) | payer MEDICARE, SELFPAY ==
[2024-05-24 15:56] LABS: Creatinine Urine 26.8 mg/dL; Total Protein Urine Random 22 mg/dL; Ur Ttl Prot Creatinine Ratio 0.82 mg/mg (0-0.20)
[2024-05-24 18:01] LABS: Albumin Level 4.2 g/dL (3.5-5.1); Anion Gap 7 mmol/L (4-12); Blood Urea Nitrogen 25 mg/dL (9-20); Calcium 9.2 mg/dL (8.4-10.2); Carbon Dioxide 30 mmol/L (22-30); Chloride 102 mmol/L (98-107); Estimated Glomerular Filt Rate 32; Glucose 133 mg/dL (65-110); Phosphorus 5.4 mg/dL (2.5-4.5); Potassium 4.6 mmol/L (3.4-5.0); Sodium 139 mmol/L (137-145)
== END 2024-05-24 14:53 | disposition home or self-care (01) ==
LOC: ANHLAB 14:54
PROVIDERS: PCP Registered Nurse; Visit Provider Internal Medicine Nephrology
DX: E11.22 Type 2 diabetes mellitus with diabetic chronic kidney disease (principal); I12.9 Hypertensive chronic kidney disease with stage 1 through stage 4 chronic kidney disease, or unspecified chronic kidney disease; N18.32 Chronic kidney disease, stage 3b
CPT/HCPCS: 36415; 80069; 82570; 84156

== ENCOUNTER 2024-10-15 14:58 | Outpatient (CLI) | payer MEDICARE, SELFPAY ==
[2024-10-15 16:07] LABS: Albumin Level 4.3 g/dL (3.5-5.1); Anion Gap 11 mmol/L (4-12); Blood Urea Nitrogen 26 mg/dL (9-20); Carbon Dioxide 25 mmol/L (22-30); Chloride 103 mmol/L (98-107); Estimated Glomerular Filt Rate 30; Glucose 128 mg/dL (65-110); Phosphorus 4.9 mg/dL (2.5-4.5); Potassium 4.4 mmol/L (3.4-5.0); Sodium 139 mmol/L (137-145)
[2024-10-15 16:20] LABS: Parathyroid Intact 40.8 pg/mL (14.5-75.2)
[2024-10-15 16:23] LABS: Vitamin D 25 Hydroxy 85.5 ng/mL
--- OUTSIDE RECORDS SUMMARY | 2024-10-15 17:08 | XMS_ITS | Referral Summary ---
Author Organization [facility] Address [address] [place] [address] Care Team Providers Care Carpenter Packing Name Role Phone Concepcion Cantu NP Primary Care Provider [phone]- [phone] Encounters Date Type Department Care Team Description 08/31/2024 2:30 PM [employer]CH[employer]ER Procedure visit [facility] [address] [place] [address], [address] [place] [address] Tomeka Smith Au.D. Sensory hearing loss, bilateral (Primary Dx) from Last 3 Months Allergies No known active allergies Medications amLODIPine (NORVASC) 5 mg tablet Take 5 mg by mouth daily 09/28/19 20 Active levothyroxine (SYNTHROID) 125 mcg tablet Take 125 mcg by mouth daily 10/05/19 20 Active Tradjenta 5 mg tablet Take 5 mg by mouth every morning 11/21/19 20 Active lisinopriL (PRINIVIL,ZEST RIL) 20 mg tablet Take 20 mg by mouth 2 (two) times a day 01/21/20 16 Active omeprazole (PriLOSEC) 20 mg capsule Take by mouth daily 10/16/19 20 Active SITagliptin (Januvia) 25 mg tablet 01/21/2016Januvia, po solid 25 mg TabletPOas directedCurrent Medication 01/21/20 16 Active tamsulosin (FLOMAX) 0.4 mg extended release capsule Take by mouth daily 12/01/19 20 Active terazosin (HYTRIN) 1 mg capsule 04/17/20 21 Active finasteride (PROSCAR) 5 mg tablet Take 5 mg by mouth daily 06/26/20 21 Active amoxicillin (AMOXIL) 875 mg tablet Take 1 tablet (875 mg total) by mouth 2 (two) times a day 10 tablet 08/18/19 22 Active methylPREDNISo lone (MEDROL DOSEPACK) 4 mg Dosepack Take as directed on package 1 packet 08/18/19 22 Active HYDROcodone-ac etaminophen ([place]) 5-325 mg per tabletIndicati ons:Pain Take 1 tablet by mouth every 6 (six) hours as needed for pain 15 tablet 08/18/19 22 Active artificial tears with lanolin ointmentIndica tions:Dry Eye Apply to eye nightly before sleep and tape shut 3.5 g 08/27/19 22 Active Artificial Tears, marguerite/min, ophthalmic ointment APPLY TO EYE NIGHTLY BEFORE SLEEP AND TAPE SHUT 08/28/19 22 Active predniSONE (DELTASONE) 10 mg tablet Take 40 mg daily for 6 days 24 tablet 09/10/19 22 Active predniSONE (DELTASONE) 10 mg tablet Take 40mg for 3 days, then 30 mg x 1 dy, then 20 mg x 1 dy then 10 mg x 1 dy then stop 18 tablet 09/15/19 22 Active colchicine (COLCRYS) 0.6 mg tablet TAKE 2 TABS BY MOUTH THEN TAKE 1 TAB 1 HOUR LATER. 10/22/19 23 Active Active Problems Problem Noted Date Diagnosed Date Urinary symptom or sign 08/02/2011 Hiccups 05/17/2011 Malignant neoplasm of colon 04/14/2011 Overview (10/21/2017): Description: 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 cell carcinoma 04/14/2011 Overview (10/21/2017): Description: 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, type 2, grade III, (-) margins Immunizations Immunization Administration Dates Next Due Influenza, Trivalent, High D ose, Split, Preservative Free, Intramuscular 04/20/2017 Influenza, Unspecified 01/21/2016,2015,01/23/2015,07/24,01/16/2014,09/26/2013,06/20/2013 Pneumococcal Conjugate PCV 13 09/07/2021 Pneumococcal Polysaccharide PPV23 12/15/2021 ZOSTER LIVE 01/21/2016,07/23/2015,01/23/2015 Social History Tobacco Use Types Packs/Day Years Used Date Smoking Tobacco: Never Alcohol Use Standard Drinks/Week Comments Never 0 (1 standard drink = 0.6 oz pur e alcohol) AUDIT-C Answer Date Recorded Q1: How often do you have a drink containing alc ohol? Never 12/25/2019 Average Number of Drinks Not on file 020 Frequency of Binge Drinking Not on file 12/09 Sex and Gender Information Value Date Recorded Sex Assigned at Not on file Legal Sex Male 2:00 AM [employer] Gender Identity Not on file Sexual Orientation Not on file Last Filed Vital Signs Vital Sign Reading Time Taken Comments Blood Pressure - - Pulse - - Temperature - - Respiratory Rate - - Oxygen Saturation - - Inhaled Oxygen Concentration - - Weight 104.3 kg (230 lb) 12/25/2019 3:26 PM CDT Height 182.9 cm (6') 12/25/2019 3:26 PM CDT Body Mass Index 31.19 12/25/2019 3:26 PM CDT Plan of Treatment Not on file Insurance [employer] SENIOR SUPPLEMENT MEDICARE MEDICARE [employer] SENIOR SUPPLEMENT Care Teams Carpenter Packing Relationship Specialty Start Date End Date Concepcion Cantu NP PCP - General Nurse Practitioner 08/31/24
--- OUTSIDE RECORDS SUMMARY | 2024-10-15 17:08 | XMS_ITS | Encounter Summary ---
Author Organization [facility] Address [address] [place] [address] Care Team Providers Care Flake Or Shred Roll Operator Name Role Phone Concepcion Cantu APRN Primary Care Provider [phone]- [phone] Jaxon Connor MD,PHD Unavailable Unavail able Encounter Details Date Type Department Care Team (Late st Contact Info) Description 03/01/2023 Hospital Orders Only [facility] [address] [place] [address] Jaxon Connor MD,PHD Social History Tobacco Use Types Packs/Day Years Used Date Smoking Tobacco: Never Smokeless Tobacco: Never Alcohol Use Standard Drinks/Week Comments No 0 (1 standard drink = 0.6 oz pur e alcohol) AUDIT-C Answer Date Recorded Frequency of Alcohol Consumption Never 10/23/2018 Average Number of Drinks Not on file 019 Frequency of Binge Drinking Not on file 10/09 Overall Financial Resource Strain (CARDIA) Answe r Date Recorded How hard is it for you to pa y for the very basics like food, housing, medical care, and heating? Not hard at all 12/12/2022 PHQ-2 Answer Date Recorded Patient Health Questionnaire-2 Score 0 01/14/2023 Hunger Vital Sign Answer Date Recorded Within the past 12 months, y ou worried that your food would run out before you got the money to buy more. Never true 12/13/19 23 Within the past 12 months, t he food you bought just didn't last and you didn't have money to get more. Never true 12/12/2022 PRAPARE - Transportation Answer Date Re corded In the past 12 months, has l ack of transportation kept you from medical appointments or from getting medications? No 10/2022 In the past 12 months, has l ack of transportation kept you from meetings, work, or from getting things needed for daily living? No 12/12/2022 Sex and Gender Information Value Date Recorded Sex Assigned at Male 09/20/2024 9:52 AM CDT Legal Sex Male 5:40 PM CDT Gender Identity Not on file Sexual Orientation Not on file documented as of this encounter Plan of Treatment Upcoming Encounters Date Type Department Care Team (Late st Contact Info) Description 10/25/2024 4:20 PM CDT Office Visit [facility] [address] [place] [address] Concepcion Cantu APRN [id number] [facility] [address] [place] [address] 04/15/2025 1:30 PM CDT Office Visit [facility] [address] [place] [address] Moreno Tomas MD [facility], [address] [place] [address] documented as of this encounter Visit Diagnoses Not on filedocumented in this encounter Care Teams Flake Or Shred Roll Operator Relationship Specialty Start Date End Date Concepcion Cantu APRN [id number] [facility] [address] [place] [address] PCP - General NURSE PRACTITIONER 12/02/22 Jaxon Connor MD,PHD [id number] [facility] [address] [place] [address] Physician CARDIOVASCULAR DISEASE 01/15/23 documented as of this encounter
--- OUTSIDE RECORDS SUMMARY | 2024-10-15 17:08 | XMS_ITS ---
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 Past Treatment and Therapy Plans No past plan information found. Lifetime Dose Tracking * Chemical Lifetime Dose Automatic Entry Manual Entr y DLP 1,085 mGycm 1,085 mGycm 0 mGycm
--- OUTSIDE RECORDS SUMMARY | 2024-10-15 17:08 | XMS_ITS | Clinical Summary ---
Author Organization [facility] on Address [address] [place] [address] Phone Care Team Providers Care Engineer Systems Name Role Phone Renan José DO Primary Care Provider [phone] Social History Tobacco Use Types Packs/Day Years Used Date Smoking Tobacco: Never Assessed Sex and Gender Information Value Date Recorded Sex Assigned at Not on file Legal Sex Male 2:34 PM COBOL DEVELOPER Gender Identity Not on file Sexual Orientation Not on file Plan of Treatment Health Maintenance Due Date Last Done Comments DTAP/TDAP/TD VACCINES (1 - Tdap) 1961 ZOSTER VACCINE (2 of 3) 03/17/2016 01/21/20 16, 07/23/2015, 01/23/2015 RSV VACCINE (60+ or ) (1 - 1-dose 75+ series) 2017 PNEUMOCOCCAL VACCINE 50+ YEA RS (2 of 2 - PPSV23) 09/07/2022 09/07/2021 INFLUENZA VACCINE (#1) 2024 04/20/2017 Insurance MEDICARE PART A AND B [employer] MEDICARE SUPP AESSI Care Teams Engineer Systems Relationship Specialty Start Date End Date Renan José DO [address] [facility] [address] [place] [address] PCP - General Internal Medicine 09/08/21
--- OUTSIDE RECORDS SUMMARY | 2024-10-15 17:09 | XMS_ITS | Clinical Summary ---
Author Organization [facility] Address [address] [place] [address] Care Team Providers Care Belt Loop Cutter Name Role Phone Concepcion Cantu SENIOR NET DEVELOPER ARCHITECT Primary Care Provider [phone] Allergies No known active allergies Medications amLODIPine [...] 1 packet 08/18/19 22 Active HYDROcodone-ac etaminophen ([place]) 5-325 mg per tabletIndicati ons:Pain Take 1 [...] RCC, type 2, grade III, (-) margins Encounters Date Type Department Care Team Description 08/31/2024 2:30 PM PARK RANGER Procedure visit [facility]ology [address] [place] [address], [address] [place] [address] Tomeka Smith Au.D. Sensory hearing loss, bilateral (Primary Dx) from Last 3 Months Immunizations Immunization Administration Dates Next Due Influenza, Trivalent, High D ose, Split, Preservative Free, Intramuscular 04/20/2017 Influenza, Unspecified 01/21/2016,2015,01/23/2015,07/24,01/16/2014,09/26/2013,06/20/2013 Pneumococcal Conjugate PCV 13 09/07/2021 Pneumococcal Polysaccharide PPV23 12/15/2021 ZOSTER LIVE 01/21/2016,07/23/2015,01/23/2015 Surgical History Surgery Date Site/Laterality Comments COLON SURGERY THYROID SURGERY Medical History Medical History Date Comments Personal history of malignan t neoplasm of thyroid Thyroid Cancer - (Added by Carissa Alanis) Personal history of other di seases of the circulatory system History of hypertension - (A dded by OSIRIS Alanis) Gout Cancer (HCC) Diabetes mellitus (HCC) Hypertension Thyroid disease Family History Relation Name Status Comments Father Mother Social History Tobacco Use Types Packs/Day Years [...] on file Legal Sex Male 2:00 AM PARK RANGER Gender Identity Not on file Sexual Orientation Not on file Obstetrics History Last Filed Vital Signs Vital Sign Reading Time Taken Comments Blood Pressure - - Pulse - - Temperature - - Respiratory Rate - - Oxygen Saturation - - Inhaled Oxygen Concentration - - Weight 104.3 kg (230 lb) 12/25/2019 3:26 PM CDT Height 182.9 cm (6') 12/25/2019 3:26 PM CDT Body Mass Index 31.19 12/25/2019 3:26 PM CDT Plan of Treatment Health Maintenance Due Date Last Done Comments Depression Screening 1942 Fall Risk Assessment 1942 DTaP/Tdap/Td Vaccine (1 - Tdap) 1953 Hepatitis B Screening 1960 Well Visit 65+ 2007 Zoster Vaccine (2 of 3) 03/17/2016 01/21/20 16, 07/23/2015, 01/23/2015 Covid-19 Vaccine ( - 2023-2 5 season) 2024 04/27/2021, 09/17/2020, 08/27/2020 Pneumococcal vaccine 65+ Completed 12/15/2021, 08/12 Influenza Vaccine Completed 04/04/2024, , 04/16/2020, Additional history exists Insurance T SENIOR SUPPLEMENT MEDICARE MEDICARE AET SENIOR SUPPLEMENT Care Teams Belt Loop Cutter Relationship Specialty Start Date End Date Concepcion Cantu NP PCP - General Nurse Practitioner 08/31/24
--- OUTSIDE RECORDS SUMMARY | 2024-10-15 17:09 | XMS_ITS | Encounter Summary ---
Author Organization [facility] Address [address] [place] [address] Phone Care Team Providers Care Barrel Lathe Operator Inside Name Role Phone Concepcion Cantu APRN, SOCIAL MEDIA DEVELOPER Primary Care Provide r Flavio Farrell MD Unavailable [phone] Reason for Visit * Reason Comments Medication Refill Encounter Details Date Type Department Care Team (Late st Contact Info) Description 12/06/2023 Refill [facility] [address] [place] [address] Flavio Farrell MD [address] [place] [phone] Medication Refill Social History Tobacco Use Types Packs/Day Years Used Date Smoking Tobacco: Never Smokeless Tobacco: Never Alcohol Use Standard Drinks/Week Comments Never 0 (1 standard drink = 0.6 oz pur e alcohol) Sex and Gender Information Value Date Recorded Sex Assigned at Not on file Legal Sex Male 8:55 PM CDT Gender Identity Not on file Sexual Orientation Not on file documented as of this encounter Miscellaneous Notes * Telephone Encounter - Rabia Ch RN - 12/07/2023 8:25 AM CDT Refill request from pharmacy. Please fill if appropriate. documented in this encounter Plan of Treatment Upcoming Encounters Date Type Department Care Team (Late st Contact Info) Description 01/03/2025 1:30 PM CDT Office Visit [facility] [address] [place] [phone] Flavio Farrell MD [address] [place] [phone] documented as of this encounter Visit Diagnoses Not on filedocumented in this encounter Care Teams Barrel Lathe Operator Inside Relationship Specialty Start Date End Date Concepcion Cantu, IRON LAUNDER OPERATOR, SOCIAL MEDIA DEVELOPER [address] [place] [address] PCP - General Advanced Practice Nurse 10/10/23 [place] [address] [place] [address] Consulting Physician Oncology 10/10/23 documented as of this encounter
--- OUTSIDE RECORDS SUMMARY | 2024-10-15 17:09 | XMS_ITS | Clinical Summary ---
Author Organization [facility] Address [address] [place] [address] Care Team Providers Care Office Assistance Name Role Phone Concepcion Cantu CELESTINA Primary Care Provider [phone] Jaxon Connor MD,PHD Unavailable Unavail able Allergies Active Allergy Reactions Criticality Noted Date Comments Amlodipine Angioedema 07/29/2024 Medications Vitamin D3 (CHOLECALCIFEROL) 50 mcg tablet Take 1 tablet (50 mcg total) by mouth daily. Active dapagliflozin (FARXIGA) 10 MG tabletIndications: Stage 3b chronic kidney disease (CMS/HCC) Take 1 tablet (10 mg total) by mouth daily. 90 tablet 2 07/26/19 25 Active finasteride (PROSCAR) 5 MG tabletIndications: Benign prostatic hyperplasia with incomplete bladder emptying Take 1 tablet (5 mg total) by mouth daily. 90 tablet 2 07/26/19 25 Active levothyroxine (SYNTHROID) 112 MCG tabletIndications: Acquired hypothyroidism Take 1 tablet (112 mcg total) by mouth daily. 90 tablet 2 07/26/19 25 Active omeprazole (PRILOSEC) 20 MG capsuleIndications :Gastroesophageal reflux disease without esophagitis Take 1 capsule (20 mg total) by mouth daily. 90 capsule 2 07/26/19 25 Active tamsulosin (FLOMAX) 0.4 MG CapIndications:Fabrizio ign prostatic hyperplasia with incomplete bladder emptying Take 1 capsule (0.4 mg total) by mouth nightly. 90 capsule 2 07/26/19 25 Active folic acid (FOLVITE) 1 MG tabletIndications: Folate deficiency Take 1 tablet (1 mg total) by mouth daily. 90 tablet 2 07/26/19 25 Active linaGLIPtin (TRADJENTA) 5 MG tabletIndications: Type 2 diabetes mellitus with stage 3b chronic kidney disease, with long-term current use of insulin ([facility]) Take 1 tablet (5 mg total) by mouth daily. 90 tablet 2 07/26/19 25 Active lisinopril (PRINIVIL) 40 MG tabletIndications: Primary hypertension,Type 2 diabetes mellitus with stage 3b chronic kidney disease, with long-term current use of insulin ([facility]) TAKE 1 TABLET BY MOUTH EVERY DAY 90 tablet 1 09/15/19 25 Active cloNIDine (CATAPRES) 0.1 MG tabletIndications: Primary hypertension Take 1 tablet (0.1 mg total) by mouth 2 (two) times daily. 60 tablet 1 07/26/19 25 025 Discontinued Active Problems Problem Noted Date Diagnosed Date Anemia in stage 3b chronic kidney disease 2023 Iron deficiency anemia due to chronic blood loss 03/01/2024 Carotid atherosclerosis, unspecified laterality 02/14/2024 Pulmonary emphysema, unspeci fied emphysema type ([facility]) 02/14/2024 Type 2 diabetes mellitus wit h stage 3b chronic kidney disease, with long-term current use of insulin ([facility]) 02/14/2024 Iron deficiency 07/06/2023 Upper respiratory tract infection, unspecified t ype 07/06/2023 Gastroesophageal reflux disease without esophagi tis 07/06/2023 Stage 3b chronic kidney disease 01/15/2023 Acquired hypothyroidism 12/12/2022 Type 2 diabetes mellitus wit hout complication, with long-term current use of insulin ([facility]) 12/12/2022 Primary hypertension 12/12/2022 Shortness of breath on exertion 12/12/2022 Hx of thyroid cancer 12/12/2022 Resolved Problems Problem Noted Date Diagnosed Date Resolved Date Malignant neoplasm of colon ([facility]) 04/14/20 11 12/27/2022 Overview (12/12/2022): Description: 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 [place] [address] Concepcion Cantu, COMPOSITION WORKER Discharge Disposition: Home or Self Care (Routine Discharge) 10/11/2024 Travel 10/08/2024 1:15 PM CDT Office Visit [facility] [place], [place] [id number] Moreno Tomas MD Hypertension (6MO) 10/08/2024 Travel 10/04/2024 12:03 AM CDT - 10/04/2024 1:24 AM CDT Emergency [facility] Emergency Room [id number] [place] [phone] Flavio Barbour MD Constipation Discharge Disposition: Home or Self Care (Routine Discharge) 10/03/2024 Travel 09/29/2024 Telephone [facility] [address] [place] [address] Concepcion Cantu, COMPOSITION WORKER Advice 09/29/2024 Telephone [facility] [address] [place] [address] Concepcion Cantu, CELESTINA Advice 09/24/2024 Orders Only [facility] [address] [place] [address] Concepcion Cantu APRN 09/24/2024 Telephone [facility] [address] [address] Concepcion Cantu APRN Question; Constipation 09/21/2024 3:17 PM CDT - 09/21/2024 8:51 PM CDT Emergency [facility] Emergency Room [address] [place] [address] Jesse Lomas MD Urinary Retention Discharge Disposition: Home or Self Care (Routine Discharge) 09/21/2024 Travel 09/21/2024 Telephone [facility] [address] [address] Concepcion Cantu APRN Error 09/20/2024 9:56 AM CDT - 09/20/2024 11:59 PM CDT Hospital Encounter [facility] [address] [place] [address] Concepcion Cantu APRN Discharge Disposition: Home or Self Care (Routine Discharge) 09/20/2024 Telephone [facility] [address] [address] Concepcion Cantu APRN Other (Distended bladder ); Advice 09/20/2024 Travel 09/06/2024 Scan [facility] Scanned, [facility] 09/04/2024 Telephone [facility] [address] [address] Concepcion Cantu APRN Kidney Problem (Called RICK to inquire about an US. ) 08/31/[address] [address] Concepcion Cantu APRN Question (LVM for patient's Farhana ( on HIPAA ). Ricky needs to schedule an appointment for a USV ABD PEL OR RETRO DUPLEX COMP, US RETROPERITONEAL COMP. If they call back please inform them and give them central scheduling number so they can set it up. ) 08/29/2024 7:43 AM AIR OPERATIONS MANAGER - 08/29/2024 11:59 PM AIR OPERATIONS MANAGER Hospital Encounter [facility] [address] [place] [address] Flavio Farrell MD Discharge Disposition: Home or Self Care (Routine Discharge) 08/29/2024 Orders Only [address] [address] Flavio Farrell MD 08/29/2024 Travel 08/09/2024 Orders Only [facility] [address] [address] Concepcion Cantu, CELESTINA 08/06/2024 Telephone [facility] [address] [address] Cocnepcion Cantu, COMPOSITION WORKER Orders 08/05/2024 Orders Only [facility] [address] [address] Concepcion Cantu, COMPOSITION WORKER 08/03/2024 Travel 07/26/2024 4:00 PM AIR OPERATIONS MANAGER Office Visit [facility] [address] [address] Concepcion Cantu, COMPOSITION WORKER Follow Up (3 month follow up); Diabetes 07/26/2024 Travel from Last 3 Months Immunizations Name Administration Dates Next Due Arexvy Respiratory Syncytial Virus (RSV, adjuvanted) 0.5 mL, PF 02/14/2024 FLUAD (IIV, Trivalent, 0.5 M L Pre-filled Syringe) 04/04/2024 Fluzone High Dose - >Age 65 (Prefilled Syringe) 05/13/2022 Influenza (Generic) 01/21/2016, 6,01/23/2015,2014,01/16/2014,09/26/2013,06/20/2013 Influenza Adult (Generic) 04/27/2021,04/16/2020, 04/20/2017 PFIZER COVID-19 (KENDRICK CAP), MRNA, LNP-S, PF, 30 MCG/0.3 ML AMERICA-SUCROSE, IM 11/19/2021 PFIZER COVID-19 (ORIGINAL FORMULATION, PURPLE CAP) mRNA, LNP-S, PF, 30 MCG/0.3 ML DOSE 04/27/2021,09/17/2020,08/27/2020 Pneumococcal (Pneumovax 23) 12/15/2021 Pneumococcal (Prevnar 13) 09/07/2021 Zoster (Zostavax) [address] Unt/0.65Ml 01/21/2016,,01/23/2015 Family History Medical History Relation Comments Hypertension Brother Emphysema Father Aneurysm Mother Relation Status Comments Brother Alive Father Mother Social History Tobacco Use Types Packs/Day Years Used Date Smoking Tobacco: Never Smokeless Tobacco: Never Tobacco Cessation:Counseling Given: Not Answered Alcohol Use Standard Drinks/Week Comments No 0 [...] Date Recorded Patient Health Questionnaire-2 Score 0 09/30/2023 Hunger Vital Sign Answer Date Recorded Within [...] Sign Reading Time Taken Comments Blood Pressure 146/72 10/08/2024 1:16 PM CDT Pulse 56 10/08/2024 1:16 PM CDT Temperature 36.9 C (98.4 F) 10/04/2024 12:06 AM CDT Respiratory Rate 16 10/04/2024 12:0 6 AM CDT Oxygen Saturation 96% 10/08/2024 1:16 PM CDT Inhaled Oxygen Concentration - - Weight 112.2 kg (247 lb 6.4 oz) 10/08/2024 1:16 PM CDT Height 185.4 cm (6' 1 ) 10/08/2024 1:16 PM CDT Body Mass Index 32.64 10/08/2024 1:16 PM CDT Plan of Treatment Upcoming Encounters Date Type Department Care Team (Late st Contact Info) Description 10/25/2024 4:20 PM CDT Office Visit [facility] [place] [address] [place] [address] Concepcion Cantu APRN [id number] [facility] [address] [place] [phone] 04/15/2025 1:30 PM CDT Office Visit [facility] [address] [place] [address] Moreno Tomas MD [facility], [address] [place] [address] Health Maintenance Due Date Last Done Comments ASCVD Statin 1940 Kidney Health Evaluation 1940 Diabetes: Retinopathy Eye Exam 1960 DTaP, Tdap and Td Vaccines (1 - Tdap) 1961 Annual Medicare Wellness Visit 2007 Zoster Vaccines (2 of 3) 03/17/2016 016, 07/23/2015, 01/23/2015 ASCVD LDL 03/02/2024 03/02/2023 Lipid Panel 03/02/2024 03/02/2023 PHQ-2 (Physician Higden) 07/11/2024 09/30/2023 COVID-19 Vaccine ( season) 2024 04/04/2024, 04/01/2023, 03/31/2022, Additional history exists Hemoglobin A1C 01/23/2025 07/26/2024, 08/0 11/2023, 09/30/2023, Additional history exists Pneumococcal Vaccine: 65+ Years Completed 12/15/2021, 09/07/2021 RSV Immunization or 60+ Years Completed 02/14/2024 Meningococcal B Vaccine Aged Out No l onger eligible based on patient's age to complete this topic Meningococcal Vaccine Aged Out No gerardo galileo eligible based on patient's age to complete this topic RSV Immunizations Under 20 Months Aged Out No longer eligible based on patient's age to complete this topic Procedures Procedure Name Priority Date/Time Associated Diagnosis Comments USV ABD PEL OR RETRO DUPLEX COMP Routine 10/11/2024 8:45 AM CDT Uncontrolled hypertension Stage 3b chronic kidney disease (CKD) (CMS/HCC) XR ABD FLAT+UPRIGHT STAT 10/04/2024 1 2:[address] ABD+PEL WO CON STAT 09/21/2024 6:3 0 PM CDT COMPREHENSIVE METABOLIC PANEL STAT 09/21/2024 5:11 PM CDT CBC W/DIFF AUTOMATED STAT 09/21/2024 5:11 PM CDT URINALYSIS, AUTO, COMPLETE STAT 09/21/2024 3:18 PM CDT USV ABD PEL OR RETRO DUPLEX LTD Routine 09/20/2024 10:58 AM CDT Stage 3b chronic kidney disease (CMS/HCC) Primary hypertension LDH, LACTATE DEHYDROGENASE Routine 08/29/2024 8:03 AM AIR OPERATIONS MANAGER Iron deficiency anemia secondary to blood loss (chronic) Chronic kidney disease (CKD) stage G3b/A1, moderately decreased glomerular filtration rate (GFR) between 30-44 mL/min/1.73 square meter and albuminuria creatinine ratio less than 30* (CMS/HCC) Anemia of chronic renal failure RETICULOCYTE CT, AUTO Routine 08/29/2024 8:03 AM AIR OPERATIONS MANAGER Iron deficiency anemia secondary to blood loss (chronic) Chronic kidney disease (CKD) stage G3b/A1, moderately decreased glomerular filtration rate (GFR) between 30-44 mL/min/1.73 square meter and albuminuria creatinine ratio less than 30* (CMS/HCC) Anemia of chronic renal failure IRON SAT PANEL (IRON,IBC,%SAT) Routine 08/29/2024 8:03 AM AIR OPERATIONS MANAGER Iron deficiency anemia secondary to blood loss (chronic) Chronic kidney disease (CKD) stage G3b/A1, moderately decreased glomerular filtration rate (GFR) between 30-44 mL/min/1.73 square meter and albuminuria creatinine ratio less than 30* (CMS/HCC) Anemia of chronic renal failure FERRITIN Routine 08/29/2024 8:03 AM AIR OPERATIONS MANAGER Iron deficiency anemia secondary to blood loss (chronic) Chronic kidney disease (CKD) stage G3b/A1, moderately decreased glomerular filtration rate (GFR) between 30-44 mL/min/1.73 square meter and albuminuria creatinine ratio less than 30* (CMS/HCC) Anemia of chronic renal failure VITAMIN B12 / FOLATE Routine 08/29/2024 8:03 AM AIR OPERATIONS MANAGER Iron deficiency anemia secondary to blood loss (chronic) Chronic kidney disease (CKD) stage G3b/A1, moderately decreased glomerular filtration rate (GFR) between 30-44 mL/min/1.73 square meter and albuminuria creatinine ratio less than 30* (CMS/HCC) Anemia of chronic renal failure COMPREHENSIVE METABOLIC PANEL Routine 08/29/2024 8:03 AM AIR OPERATIONS MANAGER Iron deficiency anemia secondary to blood loss (chronic) Chronic kidney disease (CKD) stage G3b/A1, moderately decreased glomerular filtration rate (GFR) between 30-44 mL/min/1.73 square meter and albuminuria creatinine ratio less than 30* ([facility]) Anemia of chronic renal failure CBC W/DIFF AUTOMATED Routine 08/29/2024 8:03 AM AIR OPERATIONS MANAGER Iron deficiency anemia secondary to blood loss (chronic) Chronic kidney disease (CKD) stage G3b/A1, moderately decreased glomerular filtration rate (GFR) between 30-44 mL/min/1.73 square meter and albuminuria creatinine ratio less than 30* ([facility]) Anemia of chronic renal failure HEMOGLOBIN, GLYCOSYLATED Routine 07/26/2024 Type 2 diabetes mellitus without complication, with long-term current use of insulin ([facility]) COLLECT.CAPILLARY (FNGR,HEEL,EAR) Routine 07/26/2024 Type 2 diabetes mellitus without complication, with long-term current use of insulin ([facility]) LIPID PANEL STAT 03/02/2023 6:45 AM CDT SOB (shortness of breath) Abnormal stress test Screening cholesterol level Type 2 diabetes mellitus with other specified complication, without long-term current use of insulin from Last 3 Months or Most Recently Relevant to Health Maintenance Results * USV ABD PEL OR RETRO DUPLEX COMP (10/11/2024 8:45 AM CDT) Anatomical Region Laterality Modality NA Vascular Ultraso und 10/11/2024 8:09 AM CDT Narrative 10/11/2024 7:11 PM CDT RENAL-MESENTERIC DUPLEX IMAGING VASCULAR LAB Pat.Name: JUAN LENTZ Pat.ID: [id number] .Date: 10/11/2024 Exam Time: 8:09:00 AM Study Type:DOE VS Renal Mesenteric Duplex MONICA Height: 73 in Age: 1 1940,84Y Sex: M Sonogrphr: Bg Narayanan RVT Pat. Stat.:Outpatient History / Clinical:Uncontrolled hypertension, chronic kidney disease, PMH; HTN, DM, cancer, GERD. No priors. Procedures: Kendrick scale, Color Doppler imaging, Doppler Spectral Analysis Race: W ++++++++++++++++++++++++++++++++++++ SUMMARY: ++++++++++++++++++++++++++++++++++++ [facility] Renal artery Stenosis Criteria: < 60% = PSV >180 with RAR <3.5; >60% = PSV >180 with RAR >3.5; (RI >.80 = abnormal, kidney dz.) Right renal artery no evident narrowing, normal velocity, with RAR 0.804 . RI 0.83, with kidney length within normal range. Left renal artery no evident narrowing, normal velocity, with RAR 0.901 . RI 0.80, with kidney length within normal range. Renal veins are patent bilaterally. Aorta no evident narrowing, triphasic. Multiple cystic structures within the bilateral kidneys. Large amount of abdominal fluid noted. CONCLUSION: No evidence of significant renal artery stenosis bilaterally. Resistive indices are consistent with parenchymal disease, bilaterally. Multiple cystic structures within the bilateral kidneys. Large amount of abdominal fluid noted. ++++++++++++++++++++++++++++++++++++ MEASUREMENTS: ++++++++++++++++++++++++++++++++++++ AO-ILIAC Left Kidney Kidney Size 10.7 cm Right Kidney Kidney Size 10.5 cm RENAL ART Right Origin Origin PSV 89.2 cm/s Right Prox Prox PSV 85.6 cm/s Right Mid Mid PSV 73.6 cm/s Right Distal Distal PSV 46.1 cm/s Right RAR RAR PSV 0.804 Left Origin Origin PSV 48.8 cm/s Left Prox Prox PSV 60.2 cm/s Left Mid Mid PSV 99.2 cm/s Left Distal Distal PSV 100 cm/s Left RAR RAR PSV 0.901 PARENCHYMA Left Lower Pole Segmental Artery Lower Pole Segm 0.8 Left Upper Pole Segmental Artery Upper Pole Segm 0.8 Right Lower Pole Segmental Artery Lower Pole Segm 0.78 Right Upper Pole Segmental Artery Upper Pole Segm 0.83 DOPPLER Supra AO Supra AO PSV 111 cm/s <Electronic Signature> 10/11/2024 07:11 PM Samantha Bradford M.D. Procedure Note Samantha Bradford MD - 10/11/2024 RENAL-MESENTERIC DUPLEX IMAGING VASCULAR LAB Pat.Name: JUAN LENTZ Pat.ID: [id number] .Date: 10/11/2024 Exam Time: 8:09:00 AM Study Type:DOE VS Renal Mesenteric Duplex MONICA Height: 73 in Age: 1 1940,84Y Sex: M Sonogrphr: Bg Narayanan RVT Pat. Stat.:Outpatient History / Clinical:Uncontrolled hypertension, chronic kidney disease, PMH; HTN, DM, cancer, GERD. No priors. Procedures: Kendrick scale, Color Doppler imaging, Doppler Spectral Analysis Race: W ++++++++++++++++++++++++++++++++++++ SUMMARY: ++++++++++++++++++++++++++++++++++++ [facility] Renal artery Stenosis Criteria: < 60% = PSV >180 with RAR <3.5; >60% = PSV >180 with RAR >3.5; (RI >.80 = abnormal, kidney dz.) Right renal artery no evident narrowing, normal velocity, with RAR 0.804 . RI 0.83, with kidney length within normal range. Left renal artery no evident narrowing, normal velocity, with RAR 0.901 . RI 0.80, with kidney length within normal range. Renal veins are patent bilaterally. Aorta no evident narrowing, triphasic. Multiple cystic structures within the bilateral kidneys. Large amount of abdominal fluid noted. CONCLUSION: No evidence of significant renal artery stenosis bilaterally. Resistive indices are consistent with parenchymal disease, bilaterally. Multiple cystic structures within the bilateral kidneys. Large amount of abdominal fluid noted. ++++++++++++++++++++++++++++++++++++ MEASUREMENTS: ++++++++++++++++++++++++++++++++++++ AO-ILIAC Left Kidney Kidney Size 10.7 cm Right Kidney Kidney Size 10.5 cm RENAL ART Right Origin Origin PSV 89.2 cm/s Right Prox Prox PSV 85.6 cm/s Right Mid Mid PSV 73.6 cm/s Right Distal Distal PSV 46.1 cm/s Right RAR RAR PSV 0.804 Left Origin Origin PSV 48.8 cm/s Left Prox Prox PSV 60.2 cm/s Left Mid Mid PSV 99.2 cm/s Left Distal Distal PSV 100 cm/s Left RAR RAR PSV 0.901 PARENCHYMA Left Lower Pole Segmental Artery Lower Pole Segm 0.8 Left Upper Pole Segmental Artery Upper Pole Segm 0.8 Right Lower Pole Segmental Artery Lower Pole Segm 0.78 Right Upper Pole Segmental Artery Upper Pole Segm 0.83 DOPPLER Supra AO Supra AO PSV 111 cm/s <Electronic Signature> 10/11/2024 07:11 PM Samantha Bradford M.D. us Concepcion Cantu COMPOSITION WORKER US VASC Final Resu lt * XR ABD FLAT+UPRIGHT (10/04/2024 12:54 AM CDT) Anatomical Region Laterality Modality Abdomen Radiographic Kati ging 10/04/2024 12:5 7 AM CDT Impressions 10/04/2024 1:01 AM CDT IMPRESSION: 1. Nonobstructive bowel gas pattern. 2. No significant stool burden. Referred By: Interpreted By: Ricardo Conway MD, 10/04/2024 12:57 AM Narrative 10/04/2024 1:01 AM CDT [facility] [address] [place] [address] EXAMINATION: XR ABD FLAT+UPRIGHT HISTORY: ASSESS FOR BOWEL OBSTRUCTION COMPARISON: CT 09/21/2024. Radiographs 10/23/2018. TECHNIQUE: Upright and supine AP images of the abdomen. FINDINGS: Nonobstructive small bowel gas pattern. No significant stool density within the large bowel. No bowel pneumatosis or evidence of pneumoperitoneum. No abnormal intra-abdominal calcifications. Procedure Note Ricardo Conway MD - 10/04/2024 [facility] [address] [place] [address] EXAMINATION: XR ABD FLAT+UPRIGHT HISTORY: ASSESS FOR BOWEL OBSTRUCTION COMPARISON: CT 09/21/2024. Radiographs 10/23/2018. TECHNIQUE: Upright and supine AP images of the abdomen. FINDINGS: Nonobstructive small bowel gas pattern. No significant stool densitywithin the large bowel. No bowel pneumatosis or evidence ofpneumoperitoneum. No abnormal intra-abdominal calcifications. IMPRESSION: 1. Nonobstructive bowel gas pattern. 2. No significant stool burden. Referred By: Interpreted By: Ricardo Conway MD, 10/04/2024 12:57 AM us Flavio Barbour MD GENERAL IMAGING Final Result * CT ABD+PEL WO CON (09/21/2024 6:30 PM CDT) Anatomical Region Laterality Modality Abdomen Computed Tomogra phy 09/21/2024 6:52 PM CDT Impressions 09/21/2024 7:03 PM CDT IMPRESSION: 1. The urinary bladder is irregularly shaped. There is diffuse bladder wall thickening. This is nonspecific/indeterminate. Cystitis, potentially chronic, could produce this appearance. 2. Mild bilateral hydronephrosis. No nephrolithiasis or visible urolithiasis. 3. The prostate gland is enlarged. 4. There are multiple bilateral renal cysts, not well evaluated without the use of intravenous contrast. Further evaluation with MRI of the abdomen with/without contrast is recommended on a nonemergent basis within the near future. 5. There is a diffusely heterogeneous appearance of the bone marrow within the spine. This is nonspecific/indeterminate. Osseous metastatic disease cannot be excluded. 6. There are findings suggestive of thoracic DISH or ankylosing spondylitis. 7. Splenomegaly. 8. Large stool burden which can be seen with constipation. No bowel obstruction. Referred By: Interpreted By: Bill Arteaga DO, 09/21/2024 6:52 PM Narrative 09/21/2024 7:03 PM CDT [facility] [address] [place] [address] EXAMINATION: CT abdomen/pelvis without contrast HISTORY: Urinary retention. COMPARISON: CT abdomen 09/16/2005. TECHNIQUE: Axial CT images of the abdomen and pelvis without the use of intravenous contrast . Sagittal and coronal reformatted image sets. A dose lowering technique was used for this procedure, which may include, but is not limited to, dose reduction technique, automated exposure control, the use of degenerative reconstruction, and ALARA/image gently techniques. Any follow-up recommendations contained in this report for incidentally detected pulmonary nodules were made according to current recommended guidelines based at a minimum on nodule size AND patient risk factors. FINDINGS: Lower chest: Large benign calcified pulmonary nodule within the left lower lung. The heart is normally sized. Upper abdomen: The liver is irregularly shaped. There appear to be postsurgical findings of prior partial hepatic resection. There is likely associated compensatory hypertrophy of the remaining liver resulting in the irregular shape. The gallbladder is not well seen and is potentially surgically absent. No visible biliary ductal dilatation. Detailed evaluation is limited without the use of intravenous contrast. No visible acute pancreatic abnormalities. The spleen is enlarged. There are small benign calcified splenic granulomas. No adrenal masses. Kidneys: The renal parenchyma is not well evaluated without the use of intravenous contrast. There are multiple bilateral renal cysts, not well evaluated without the use of intravenous contrast. Further evaluation with MRI of the abdomen with/without contrast is recommended. Mild bilateral hydronephrosis. No nephrolithiasis or visible urolithiasis. No evidence of renal inflammation. Vascular: The abdominal aorta is normal caliber. There is atherosclerotic vascular disease. Bowel/mesentery: No ascites or free intraperitoneal air. There is no bowel obstruction. No definite colonic or enteric inflammatory changes. There is a large stool burden which can be seen with constipation. There is a fat-containing hernia near the umbilicus. No herniated bowel loops. Pelvis: There is diffuse bladder wall thickening. The urinary bladder is irregularly shaped. This is nonspecific/indeterminate. Cystitis, potentially chronic, could produce this appearance. Clinical correlation is recommended. A Dos Santos catheter is present within the urinary bladder. The urinary bladder is not completely decompressed. The prostate gland is enlarged. No free pelvic fluid. There are pelvic phleboliths. Other findings: None. Osseous: There are multilevel degenerative changes throughout the spine and the pelvis. No acute osseous abnormalities are identified. There is a diffusely heterogeneous appearance of the bone marrow within the spine. This is nonspecific/indeterminate. Osseous metastatic disease cannot be excluded. There are findings suggestive of thoracic DISH or ankylosing spondylitis. Procedure Note JenniBillDO - 09/21/2024 [facility] [address] [place] [address] EXAMINATION: CT abdomen/pelvis without contrast HISTORY: Urinary retention. COMPARISON: CT abdomen 09/16/2005. TECHNIQUE: Axial CT images of the abdomen and pelvis without the use of intravenouscontrast . Sagittal and coronal reformatted image sets. A dose lowering technique was used for this procedure, which may include,but is not limited to, dose reduction technique, automated exposurecontrol, the use of degenerative reconstruction, and ALARA/image gentlytechniques. Any follow-up recommendations contained in this report for incidentallydetected pulmonary nodules were made according to current recommendedguidelines based at a minimum on nodule size AND patient risk factors. FINDINGS: Lower chest: Large benign calcified pulmonary nodule within the left lowerlung. The heart is normally sized. Upper abdomen: The liver is irregularly shaped. There appear to bepostsurgical findings of prior partial hepatic resection. There is likelyassociated compensatory hypertrophy of the remaining liver resulting inthe irregular shape. The gallbladder is not well seen and is potentiallysurgically absent. No visible biliary ductal dilatation. Detailedevaluation is limited without the use of intravenous contrast. No visibleacute pancreatic abnormalities. The spleen is enlarged. There are smallbenign calcified splenic granulomas. No adrenal masses. Kidneys: The renal parenchyma is not well evaluated without the use ofintravenous contrast. There are multiple bilateral renal cysts, not wellevaluated without the use of intravenous contrast. Further evaluationwith MRI of the abdomen with/without contrast is recommended. Mildbilateral hydronephrosis. No nephrolithiasis or visible urolithiasis. Noevidence of renal inflammation. Vascular: The abdominal aorta is normal caliber. There is atheroscleroticvascular disease. Bowel/mesentery: No ascites or free intraperitoneal air. There is nobowel obstruction. No definite colonic or enteric inflammatory changes.There is a large stool burden which can be seen with constipation. Thereis a fat-containing hernia near the umbilicus. No herniated bowel loops. Pelvis: There is diffuse bladder wall thickening. The urinary bladder isirregularly shaped. This is nonspecific/indeterminate. Cystitis,potentially chronic, could produce this appearance. Clinical correlationis recommended. A Dos Santos catheter is present within the urinary bladder.The urinary bladder is not completely decompressed. The prostate gland isenlarged. No free pelvic fluid. There are pelvic phleboliths. Other findings: None. Osseous: There are multilevel degenerative changes throughout the spineand the pelvis. No acute osseous abnormalities are identified. There ofelia diffusely heterogeneous appearance of the bone marrow within the spine.This is nonspecific/indeterminate. Osseous metastatic disease cannot beexcluded. There are findings suggestive of thoracic DISH or ankylosingspondylitis. IMPRESSION: 1. The urinary bladder is irregularly shaped. There is diffuse bladderwall thickening. This is nonspecific/indeterminate. Cystitis, potentiallychronic, could produce this appearance. 2. Mild bilateral hydronephrosis. No nephrolithiasis or visibleurolithiasis. 3. The prostate gland is enlarged. 4. There are multiple bilateral renal cysts, not well evaluated withoutthe use of intravenous contrast. Further evaluation with MRI of theabdomen with/without contrast is recommended on a nonemergent basis withinthe near future. 5. There is a diffusely heterogeneous appearance of the bone marrowwithin the spine. This is nonspecific/indeterminate. Osseous metastaticdisease cannot be excluded. 6. There are findings suggestive of thoracic DISH or ankylosingspondylitis. 7. Splenomegaly. 8. Large stool burden which can be seen with constipation. No bowelobstruction. Referred By: Interpreted By: Bill Arteaga DO, 09/21/2024 6:52 PM us Jesse Lomas MD CT Final Result * (ABNORMAL) COMPREHENSIVE METABOLIC PANEL (09/21/2024 5:11 PM CDT) Only the most recent of2 resultswithin the time period is included. GLUCOSE 129(H) 70 - 99 MG/DL 09/21/2024 5:[address] [facility] BUN 22(H) 7 - 18 MG/DL 09/21/2024 5:[address] [facility] CREATININE S/P/B 2.05(H) 0.7 - 1.3 MG/DL 09/21/2024 5:[address] [facility] SODIUM S/P/B 145 136 - 145 MMOL/L 09/21/2024 5:[address] [facility] POTASSIUM S/P/B 4.7 3.5 - 5.1 MMOL/L 09/21/2024 5:[address] [facility] CHLORIDE S/P/B 109(H) 100 - 108 MMOL/L 09/21/2024 5:[address] [facility] CO2 28.9 21 - 32 MMOL/L 09/21/2024 5:[address] [facility] CALCIUM S/P/B 9.4 8.5 - 10.1 MG/DL 09/21/2024 5:[address] [facility] BILIRUBIN TOTAL S/P/B 0.6 0.2 - 1.2 MG/DL 09/21/2024 5:[address] [facility] TOTAL PROTEIN S/P/B 7.1 6.4 - 8.2 G/DL 09/21/2024 5:[address] [facility] ALBUMIN S/P/B 4.2 3.4 - 5.0 G/DL 09/21/2024 5:[address] [facility] AST 9(L) 15 - 37 U/L 09/21/2024 5:[address] [facility] ALT 9(L) 16 - 60 U/L 09/21/2024 5:[address] [facility] ALKALINE PHOSPHATASE S/P/B 71 50 - 136 U/L 09/21/2024 5:33 PM CDT [facility] ANION GAP 7.1 5 - 15 MMOL/L 09/21/2024 5:33 PM CDT [facility] BUN CREATININE RATIO 10.7 6 - 26 09/21/2024 5:33 PM CDT [facility] A/G RATIO 1.4 1.0 - 2.0 RATIO 09/21/2024 5:33 PM CDT [facility] GFR ESTIMATE 32(L) >90 ML/MIN/1.7 3 M2 09/21/2024 5:33 PM CDT [facility] Comment: NOTE: eGFR is not calculated for patients <18 years of age. This is an estimated GFR calculation using the new CKD EPI creatinine equation without race and so does not require a correction factor for race. This estimated GFR should not be used for calculating drug doses. 09/21/2024 5:11 PM CDT us Jesse Lomas MD LABORATORY Final Result [facility] [address] [place] [address], [place] [phone] * (ABNORMAL) CBC W/DIFF AUTOMATED (09/21/2024 5:11 PM CDT) Only the most recent of2 resultswithin the time period is included. WBC 5.91 4.4 - 11.0 x10'3/uL 09/21/2024 5:23 PM CDT [facility] RBC 5.13 4.50 - 5.90 x10'6/uL 09/21/2024 5:23 PM CDT [facility] HGB 15.0 14.0 - 17.5 G/DL 09/21/2024 5:23 PM CDT [facility] HCT 45.0 41.5 - 50.4 % 09/21/2024 5:23 PM CDT [facility] MCV 87.7 80.0 - 96.0 FL 09/21/2024 5:23 PM CDT [facility] MCH 29.2 26.5 - 31.4 PG 09/21/2024 5:23 PM CDT [facility] MCHC 33.3 31.9 - 34.8 G/DL 09/21/2024 5:23 PM CDT [facility] RDW 13.6 12.3 - 14.3 % 09/21/2024 5:23 PM CDT [facility] PLT 102(L) 151 - 353 x10'3/uL 09/21/2024 5:23 PM CDT [facility] MPV 9.8 9.7 - 11.9 FL 09/21/2024 5:23 PM CDT [facility] RBC MORPHOLOGY NORMAL 09/21/2024 5:23 PM CDT [facility] PLT MORPH. NORMAL 09/21/2024 5:23 PM T [facility] WBC MORPHOLOGY NORMAL 09/21/2024 5:23 PM CDT [facility] LYMPHOCYTES % 20.3 15.8 - 45.0 % 09/21/2024 5:23 PM CDT [facility] NEUTROPHILS % 67.5 42.1 - 71.9 % 09/21/2024 5:23 PM CDT [facility] MONOCYTES % 9.5 5.7 - 12.5 % 09/21/2024 5:23 PM CDT [facility] EOSINOPHILS 1.7 0.0 - 5.6 % 09/21/2024 5:23 PM CDT [facility] BASOPHILS 0.7 0.0 - 1.3 % 09/21/2024 5:23 PM CDT [facility] ABS. NEUTROPHILS 3.99 1.40 - 6.00 x10'3/uL 09/21/2024 5:23 PM CDT [facility] IMMATURE GRANS % 0.3 0.0 - 0.5 % 09/21/2024 5:23 PM CDT [facility] ABS. LYMPHOCYTES 1.20 0.80 - 4.70 x10'3/uL 09/21/2024 5:23 PM CDT [facility] 09/21/2024 5:11 PM CDT Jesse Lomas MD LABORATORY Final Result [facility] [address] [place] [address], [place] [phone] * (ABNORMAL) URINALYSIS, AUTO, COMPLETE (09/21/2024 3:18 PM CDT) COLOR (U) YELLOW 09/21/2024 3:46 PM CDT [facility] TRANSPARENCY CLEAR 09/21/2024 3:46 PM CDT [facility] SPECIFIC GRAVITY (U) <1.005 1.000 - 1.030 09/21/2024 3:46 PM CDT [facility] U PH 6.0 5.0 - 9.0 09/21/2024 3:46 PM CDT [facility] LEUKOCYTES (U) NEGATIVE NEGATIVE 09/21/2024 3:46 PM CDT [facility] NITRITES NEGATIVE NEGATIVE 09/21/2024 3:46 PM CDT [facility] PROTEIN RANDOM (U) NEGATIVE NEGATIVE 09/21/2024 3:46 PM CDT [facility] GLUCOSE (U) 2+(A) NEGATIVE 09/21/2024 3:46 PM CDT [facility] KETONES MG/DL (U) NEGATIVE NEGATIVE 09/21/2024 3:46 PM CDT [facility] BILIRUBIN (U) NEGATIVE NEGATIVE 09/21/2024 3:46 PM CDT [facility] BLOOD (U) NEGATIVE NEGATIVE 09/21/2024 3:46 PM CDT [facility] WBC/HPF NONE SEEN 0 - 5 /HPF 09/21/2024 3:46 PM CDT [facility] RBC/HPF NONE SEEN 0 - 5 /HPF 09/21/2024 3:46 PM CDT [facility] EPI/HPF NONE SEEN /HPF 09/21/2024 3:46 PM CDT [facility] URINE SPECIMEN OBTAINED BY CLEAN CATCH PROCEDURE / Unknown 09/21/2024 3:18 PM CDT us Jesse Lomas MD URINE ORDERABLES Final Result [facility] [address] [place] [id number], [place] [phone] * USV ABD PEL OR RETRO DUPLEX LTD (09/20/2024 10:58 AM CDT) Anatomical Region Laterality Modality NA Vascular Ultraso und 09/20/2024 10:0 2 AM CDT Narrative 09/20/2024 5:05 PM CDT [facility] Pat.Name: LENTZ, JUAN NOEL Pat.ID: [id number] .Date: 09/20/2024 Refer.: [id number], Alondra freedman Exam Time: 10:02:00 AM Study Type:DOE VS Renal Mesenteric Duplex UNI Height: 73 in Age: 1 1940,84Y Sex: M Sonogrphr: Anna Khan, RVT Pat. Stat.:Outpatient History / Clinical:Uncontrolled hypertension, chronic kidney disease. Patient has had hiccups all night long and continues to have the hiccups at the time of the exam priors. Procedures: Kendrick scale, Color Doppler imaging, Doppler Spectral Analysis Race: W ++++++++++++++++++++++++++++++++++++ SUMMARY: ++++++++++++++++++++++++++++++++++++ Gisel Renal artery Stenosis Criteria: < 60% = PSV >180 with RAR <3.5; >60% = PSV >180 with RAR >3.5; (RI >.80 = abnormal, kidney dz.) Attempted to perform the study. Patient continues to have hiccups. Overlying bowel gas present. The patient's bladder is significantly distended before and after voiding. Patient has been rescheduled for a later date. CONCLUSION: Unable to visualize renal arteries due to overlying bowel gas. Incidental finding: significantly distended bladder. <Electronic Signature> 09/20/2024 05:05 PM Samantha Bradford M.D. Procedure Note Samantha Bradford MD - 09/20/2024 [facility] Pat.Name: JUAN LENTZ Pat.ID: [id number] .Date: 09/20/2024 Refer.: [id number], Alondra freedman Exam Time: 10:02:00 AM Study Type:DOE VS Renal Mesenteric Duplex UNI Height: 73 in Age: 1 1940,84Y Sex: M Sonogrphr: [facility] Pat. Stat.:Outpatient History / Clinical:Uncontrolled hypertension, chronic kidney disease. Patient has had hiccups all night long and continues to have the hiccups at the time of the exam priors. Procedures: Kendrick scale, Color Doppler imaging, Doppler Spectral Analysis Race: W ++++++++++++++++++++++++++++++++++++ SUMMARY: ++++++++++++++++++++++++++++++++++++ Gisel Renal artery Stenosis Criteria: < 60% = PSV >180 with RAR <3.5; >60% = PSV >180 with RAR >3.5; (RI >.80 = abnormal, kidney dz.) Attempted to perform the study. Patient continues to have hiccups. Overlying bowel gas present. The patient's bladder is significantly distended before and after voiding. Patient has been rescheduled for a later date. CONCLUSION: Unable to visualize renal arteries due to overlying bowel gas. Incidental finding: significantly distended bladder. <Electronic Signature> 09/20/2024 05:05 PM Samantha Bradford M.D. Concepcion Cantu APRN VASC Final Resu lt * VITAMIN B12 / FOLATE (08/29/2024 8:03 AM AIR OPERATIONS MANAGER) [facility] VITAMIN B12 S/P/B 341 193 - 986 PG/ML 08/29/2024 9:22 AM [facility] FOLATE >20.0 8.6 - 58.9 NG/ML 08/29/2024 9:22 AM [facility] 08/29/2024 8:03 AM AIR OPERATIONS MANAGER Flavio Farrell MD LABORATORY Final Resul t [facility] [address] [place] [address], [place] [phone] * (ABNORMAL) IRON SAT PANEL (IRON,IBC,%SAT) (08/29/2024 8:03 AM AIR OPERATIONS MANAGER) [facility] IRON 62(L) 65 - 175 MCG/DL 08/29/2024 8:32 AM [facility] IRON BINDING CAPACITY 288 250 - 450 MCG/DL 08/29/2024 8:32 AM [facility] IRON SATURATION 22 20 - 55 % 8:32 AM AIR OPERATIONS MANAGER [facility] 08/29/2024 8:03 AM AIR OPERATIONS MANAGER us Flavio Farrell MD LABORATORY Final Resul t Performing Organization Address [facility]/ZIP Co de Phone Number [facility] [address] [place] [address], [place] [phone] * RETICULOCYTE CT, AUTO (08/29/2024 8:03 AM AIR OPERATIONS MANAGER) RETICULOCYTE COUNT 1.2 0.5 - 1.5 % 08/29/2024 8:27 AM AIR OPERATIONS MANAGER [facility] 08/29/2024 8:03 AM AIR OPERATIONS MANAGER us Flavio Farrell MD LABORATORY Final Resul t Performing Organization Address [facility]/ZIP Co de Phone Number [facility] [address] [place] [address], [place] [phone] * LDH, LACTATE DEHYDROGENASE (08/29/2024 8:03 AM AIR OPERATIONS MANAGER) LDH 143 87 - 241 UNITS/L 08/29/2024 8:53 AM AIR OPERATIONS MANAGER [facility] 08/29/2024 8:03 AM AIR OPERATIONS MANAGER us Flavio Farrell MD LABORATORY Final Resul t Performing Organization Address City/[facility]/ZIP Co de Phone Number [facility] [address] [place] [address], [place] [phone] * FERRITIN (08/29/2024 8:03 AM AIR OPERATIONS MANAGER) FERRITIN 348.0 8.0 - 388.0 NG/ML 08/29/2024 8:53 AM AIR OPERATIONS MANAGER [facility] 08/29/2024 8:03 AM AIR OPERATIONS MANAGER Flavio Farrell MD LABORATORY Final Resul t Performing Organization Address [facility] Co de Phone Number [facility] [address] [place] [address], [place] [phone] * HEMOGLOBIN, GLYCOSYLATED (07/26/2024) HGB A1C 5.7 % -[id number] [facility] 07/26/2024 Concepcion Cantu APRN LABORATORY Final Resu lt Performing Organization Address [facility] Co de Phone Number -[address]471 [facility] [address] [place] [address], [place] [phone] * COLLECT.CAPILLARY (FNGR,HEEL,EAR) (07/26/2024) Concepcion Cantu APRN PROCEDURES-UNRESULTED Eva l Result Performing Organization Address [facility] Co de Phone Number [facility] * LIPID PANEL (03/02/2023 6:45 AM CDT) CHOLESTEROL 151 <200 MG/DL 03/02/2023 7:[address] [facility] TRIGLYCERIDES 83 <150 MG/DL 03/02/2023 7:[address] [facility] HDL 70 >40.0 MG/DL 03/02/2023 7:[address] [facility] LDL (CALCULATED) 64 <100 MG/DL 03/02/20 7:[address] AM [address] [facility] NON HDL CHOLESTEROL 81 <130 MG/DL 03/02 7:[address] AM [address] [facility] CHOL/HDL RATIO 2.2 0.0 - 4.5 03/02/2023 7:[address] [facility] VLDL CALCULATION 17 5 - 55 MG/DL 03/02/2023 7:[address] [facility] LIPID INTERPRETATION 03/02/2023 7:[address] [facility] Comment: [facility] CONCENSUS REPORT RECOMMENDATIONS: ADULT CHILD LOW RISK: CHOLESTEROL <200 <170 TRIGLYCERIDE <150 --- HDL >=60 --- LDL <100 <110 BORDERLINE: CHOLESTEROL 200-239 170-199 TRIGLYCERIDE 150-199 --- HDL 40-59 --- LDL 100-159 110-129 HIGH RISK: CHOLESTEROL >=240 >=200 TRIGLYCERIDE >=200 --- HDL <40 --- LDL >=160 >=130 03/02/2023 6:45 AM CDT Jaxon Connor MD,PHD LABORATORY Final Re sult [facility] [address] [id number], from Last 3 Months or Most Recently Relevant to Health Maintenance Insurance MEDICARE [facility] Advance Directives * Full Code (Latest Code Status on File) Date Activated Date Inactivated Comments 03/02/2023 8:58 AM 03/02/2023 3:02 PM Care Teams Office Assistance Relationship Specialty Start Date End Date Concepcion Cantu APRN [address] [employer] [address] [place] [address] PCP - General NURSE PRACTITIONER 12/02/22 Jaxon Connor MD,PHD [address] [place] [address] Physician CARDIOVASCULAR DISEASE 01/15/23
--- OUTSIDE RECORDS SUMMARY | 2024-10-15 17:09 | XMS_ITS | Clinical Summary ---
Author Organization [facility] Address [address], [facility] [address] [place] [address] Phone Care Team Providers Care Ski Instructor Name Role Phone Concepcion Cantu APRN, CLAIM REVIEW MEDICAL DIRECTOR Primary Care Provide r Flavio Farrell MD Unavailable Allergies No known active allergies Medications finasteride (PROSCAR) 5 MG Tablet Take 5 mg by mouth daily. Active lisinopril (PRINIVIL, ZESTRIL) 20 MG Tablet Take 20 mg by mouth. 6 Active tamsulosin (FLOMAX) 0.4 MG Capsule TAKE 1 CAPSULE BY MOUTH EVERYDAY AT BEDTIME Active lisinopril (PRINIVIL, ZESTRIL) 40 MG Tablet Take 40 mg by mouth daily. 3 Active levothyroxine (SYNTHROID) 112 MCG Tablet Take 112 mcg by mouth. 3 Active Tradjenta 5 MG Tablet Take 5 mg by mouth daily. 0 Active omeprazole (PriLOSEC) 20 MG CAPSULE DELAYED RELEASE Take 20 mg by mouth daily. Active Dapagliflozin Propanediol 10 MG Tablet Take 10 mg by mouth daily. 4 Active folic acid (FOLVITE) 1 MG TabletIndication s:Anemia in stage 3b chronic kidney disease (HCC),Folic acid deficiency TAKE 1 TABLET BY MOUTH EVERY DAY 90 Tablet 4 Active Active Problems Problem Noted Date Diagnosed Date Iron deficiency anemia due to chronic blood loss 03/01/2024 Anemia in stage 3b chronic kidney disease 2023 Encounters Date Type Department Care Team Description 09/06/2024 1:30 PM SALON SHAMPOO ASSISTANT Office Visit [facility] [address] [address] Flavio Farrell MD Anemia in stage 3b chronic kidney disease (HCC) (Primary Dx) 09/06/2024 Travel from Last 3 Months Family History Medical History Relation Name Comments Emphysema Father Aneurysm Mother Relation Name Status Comments Brother Alive Father Mother Social History Tobacco Use Types Packs/Day Years Used Date Smoking Tobacco: Never Smokeless Tobacco: Never Tobacco Cessation:Counseling Given: Not Answered Alcohol Use Standard Drinks/Week Comments Never 0 (1 standard drink = 0.6 oz pur e alcohol) Sex and Gender Information Value Date Recorded Sex Assigned at Not on file Legal Sex Male 8:55 PM CDT Gender Identity Not on file Sexual Orientation Not on file Last Filed Vital Signs Vital Sign Reading Time Taken Comments Blood Pressure 158/94 09/06/2024 1:33 PM SALON SHAMPOO ASSISTANT Pulse 56 09/06/2024 1:33 PM SALON SHAMPOO ASSISTANT Temperature 36.7 C (98 F) 09/06/2024 1:33 PM SALON SHAMPOO ASSISTANT Respiratory Rate 22 09/06/2024 1:33 PM SALON SHAMPOO ASSISTANT Oxygen Saturation 98% 09/06/2024 1:33 PM SALON SHAMPOO ASSISTANT Inhaled Oxygen Concentration - - Weight 112.1 kg (247 lb 3.2 oz) 09/06/2024 1:33 PM SALON SHAMPOO ASSISTANT Height 185.4 cm (6' 1 ) 09/06/2024 1:33 PM SALON SHAMPOO ASSISTANT Body Mass Index 32.61 09/06/2024 1:33 PM SALON SHAMPOO ASSISTANT Plan of Treatment Upcoming Encounters Date Type Department Care Team (Late st Contact Info) Description 01/03/2025 1:30 PM CDT Office Visit [facility] [address] [address] Flavio Farrell MD [address] [place], [place] [phone] Health Maintenance Due Date Last Done Comments Hepatitis C Virus (HCV) Screening 1940 TdaP Immunization 1940 Zoster Immunization (2 of 3) 03/17/2016, 07/23/2015, 01/23/2015 SARS-COV-2 Immunization ( season) 2024 04/04/2024, 04/01/2023, 03/31/2022, Additional history exists Pneumococcal Immunization (50+ years) Completed 12/15/2021, 09/07/2021 Respiratory Syncytial Virus (RSV) Immunization (Adult) Completed 02/14/2024 Influenza Immunization Completed , 04/01/2023, 05/13/2022, Additional history exists Hepatitis B Immunization Aged Out No longer eligible based on patient's age to complete this topic Meningococcal Immunization (ACWY) Aged Out No longer eligible based on patient's age to complete this topic Rotavirus Immunization Aged Out No lo nger eligible based on patient's age to complete this topic Insurance MEDICARE [employer] [facility] Care Teams Ski Instructor Relationship Specialty Start Date End Date Concepcion Cantu APRN, ИРИНА [address] [place] [address] PCP - General Advanced Practice Nurse 10/10/23 [place] [address] [place] [address] Consulting Physician Oncology 10/10/23
[2024-10-15 17:18] LABS: Creatinine Urine 35.4 mg/dL; Total Protein Urine Random 42 mg/dL; Ur Ttl Prot Creatinine Ratio 1.19 mg/mg (0-0.20)
== END 2024-10-15 14:59 | disposition home or self-care (01) ==
PROVIDERS: PCP Registered Nurse; Visit Provider Internal Medicine Nephrology
DX: I12.9 Hypertensive chronic kidney disease with stage 1 through stage 4 chronic kidney disease, or unspecified chronic kidney disease (principal); E11.22 Type 2 diabetes mellitus with diabetic chronic kidney disease; N18.32 Chronic kidney disease, stage 3b; N25.81 Secondary hyperparathyroidism of renal origin; E55.9 Vitamin D deficiency, unspecified
CPT/HCPCS: 36415; 80069; 82306; 82570; 83970; 84156

== ENCOUNTER 2025-02-12 15:53 | Outpatient (CLI) | payer MEDICARE, SELFPAY ==
--- OUTSIDE RECORDS SUMMARY | 2025-02-12 15:58 | XMS_ITS | Encounter Summary ---
Author Organization [facility] Address [address] [place] [address] Phone Care Team Providers Care Methods Specialist Name Role Phone Concepcion Cantu APRN, HOOK PULLER Primary Care Provide r Flavio Farrell MD Unavailable Reason for Visit * Reason Comments Medication Refill Encounter Details Date Type Department Care Team (Late st Contact Info) Description 12/06/2023 Refill [facility] [address] [place] [address] Flavio Farrell MD [address] [place] [phone] Medication Refill Social History Tobacco Use [...] Care Team (Late st Contact Info) Description 05/02/2025 1:30 PM CDT Office Visit [facility] [address] [phone] Flavio Farrell MD [address] [place] [phone] documented as of this encounter Visit Diagnoses Not on filedocumented in this encounter Care Teams Methods Specialist Relationship Specialty Start Date End Date Concepcion Cantu, ELECTRONIC PREPRESS OPERATOR, HOOK PULLER [address] [place] [address] PCP - General Advanced Practice Nurse 10/10/23 [place] [address] [place] [address] Consulting Physician Oncology 10/10/23 documented as of this encounter
--- OUTSIDE RECORDS SUMMARY | 2025-02-12 15:58 | XMS_ITS ---
Author Organization [facility] [place] Address [address] [place] [address] Care Team Providers Care Auto Adjudication Specialist Name Role Phone Concepcion Cantu TALENT PARTNER Primary Care Provider [phone] Active Problems Problem Noted Date Diagnosed Date [...]
--- OUTSIDE RECORDS SUMMARY | 2025-02-12 15:58 | XMS_ITS | Clinical Summary ---
Author Organization [facility] Address [address] [place] [address] Care Team Providers Care Mortgage Loan Interviewer Name Role Phone Concepcion Cantu CELESTINA Primary Care Provider [phone]- [phone] Jaxon Connor MD,PHD Unavailable Unavail able Allergies Active Allergy Reactions Criticality Noted Date Comments Amlodipine Angioedema 07/29/2024 Medications Vitamin D3 (CHOLECALCIFEROL) 50 mcg tablet Take 1 tablet (50 mcg total) by mouth daily. Active finasteride (PROSCAR) 5 MG tabletIndications:Benig n prostatic hyperplasia with incomplete bladder emptying Take 1 tablet (5 mg total) by mouth daily. 90 tablet 2 07/26/19 25 Active levothyroxine (SYNTHROID) 112 MCG tabletIndications:Acqui red hypothyroidism Take 1 tablet (112 mcg total) by mouth daily. 90 tablet 2 07/26/19 25 Active omeprazole (PRILOSEC) 20 MG capsuleIndications:Karan roesophageal reflux disease without esophagitis Take 1 capsule (20 mg total) by mouth daily. 90 capsule 2 07/26/19 25 Active tamsulosin (FLOMAX) 0.4 MG CapIndications:Benign prostatic hyperplasia with incomplete bladder emptying Take 1 capsule (0.4 mg total) by mouth nightly. 90 capsule 2 07/26/19 25 Active folic acid (FOLVITE) 1 MG tabletIndications:Folat e deficiency Take 1 tablet (1 mg total) by mouth daily. 90 tablet 2 07/26/19 25 Active linaGLIPtin (TRADJENTA) 5 MG tabletIndications:Type 2 diabetes mellitus with stage 3b chronic kidney disease, with long-term current use of insulin ([facility]) Take 1 tablet (5 mg total) by mouth daily. 90 tablet 2 07/26/19 25 Active lisinopril (PRINIVIL) 40 MG tabletIndications:Prima ry hypertension,Type 2 diabetes mellitus with stage 3b chronic kidney disease, with long-term current use of insulin ([facility]) TAKE 1 TABLET BY MOUTH EVERY DAY 90 tablet 1 09/15/19 25 Active azelastine (OPTIVAR) 0.05 % ophthalmic solutionIndications:All ergic rhinoconjunctivitis of left eye Place 1 drop into both eyes 2 (two) times daily. 6 mL 3 10/29/19 25 Active predniSONE (DELTASONE) 20 MG tabletIndications:Knee pain TAKE 2 TABLETS EVERY MORNING FOR 5 DAYS 10 tablet 11/29/19 25 Active Active Problems Problem Noted Date Diagnosed Date Anemia in stage 3b chronic kidney disease 2023 Iron deficiency anemia due to chronic blood loss 03/01/2024 Carotid atherosclerosis, unspecified laterality 02/14/2024 Pulmonary emphysema, unspeci fied emphysema type ([facility]) 02/14/2024 Type 2 diabetes mellitus wit h stage 3b chronic kidney disease, with long-term current use of insulin ([facility]) 02/14/2024 Iron deficiency 07/06/2023 Upper respiratory tract infection, unspecified t ype 07/06/2023 Gastroesophageal reflux disease without esophagi tis 07/06/2023 Stage 3b chronic kidney disease 01/15/2023 Acquired hypothyroidism 12/12/2022 Type 2 diabetes mellitus wit h stage 3b chronic kidney disease, without long-term current use of insulin ([facility]) 12/12/2022 Primary hypertension 12/12/2022 Shortness of breath on exertion 12/12/2022 Hx of thyroid cancer 12/12/2022 Resolved Problems Problem Noted Date Diagnosed Date Resolved Date Malignant neoplasm of colon ([facility]) 04/14/20 11 12/27/2022 Overview (12/12/2022): Description: 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[facility]) 04/14/2011 12/27/2022 Overview (12/12/2022): Description: 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, type 2, grade III, (-) margins Encounters Date Type Department Care Team Description 01/03/2025 Scan [facility] INFO SRVCS Scanned, Doc Med Group from Last 3 Months Immunizations Immunization Administration Dates Next Due Arexvy Respiratory Syncytial Virus (RSV, adjuvanted) 0.5 mL, PF 02/14/2024 FLUAD (IIV, Trivalent, 0.5 M L Pre-filled Syringe) 04/04/2024 Fluzone High Dose - >Age 65 (Prefilled Syringe) 05/13/2022 Influenza (Generic) 01/21/2016, 6,01/23/2015,2014,01/16/2014,09/26/2013,06/20/2013 Influenza Adult (Generic) 04/27/2021,04/16/2020, 04/20/2017 PFIZER COVID-19 (STUART CAP), MRNA, LNP-S, PF, 30 MCG/0.3 ML AMERICA-SUCROSE, IM 11/19/2021 PFIZER COVID-19 (ORIGINAL FORMULATION, PURPLE CAP) mRNA, LNP-S, PF, 30 MCG/0.3 ML DOSE 04/27/2021,09/17/2020,08/27/2020 Pneumococcal (Pneumovax 23) 12/15/2021 Pneumococcal (Prevnar 13) 09/07/2021 Zoster (Zostavax) 71772 Unt/0.65Ml 01/21/2016,,01/23/2015 Family History Medical History Relation Comments Hypertension Brother Emphysema Father Aneurysm Mother Relation Status Comments Brother Alive Father Mother Social History Tobacco Use Types Packs/Day Years Used Date Smoking Tobacco: Never Smokeless Tobacco: Never Tobacco Cessation:Counseling Given: No Alcohol Use Standard Drinks/Week Comments No 0 [...] Sign Reading Time Taken Comments Blood Pressure 148/88 10/25/2024 3:59 PM CDT Pulse 76 10/25/2024 3:59 PM CDT Temperature 36.6 C (97.9 F) 10/25/2024 3:59 PM CDT Respiratory Rate 18 10/25/2024 3:59 PM CDT Oxygen Saturation 96% 10/25/2024 3:59 PM CDT Inhaled Oxygen Concentration - - Weight 112.5 kg (248 lb) 10/25/2024 3:59 PM CDT Height 185.4 cm (6' 1) 10/25/2024 3:59 PM CDT Body Mass Index 32.72 10/25/2024 3:59 PM CDT Plan of Treatment Upcoming Encounters Date Type Department Care Team (Late st Contact Info) Description 04/04/2025 4:00 PM CDT Office Visit [facility] Medical Group Family & Internal Medicine [address] [phone] Concepcion Cantu, GEOTECHNICIAN [address] [place] [address] 04/15/2025 1:30 PM CDT Office Visit [facility] [address] [place] [address] Moreno Tomas MD Three [facility] [address] [place] [address] Health Maintenance Due Date Last Done Comments ASCVD Statin 1942 Kidney Health Evaluation 1942 Diabetes: Retinopathy Eye Exam 1960 DTaP, Tdap and Td Vaccines (1 - Tdap) 1961 Annual Medicare Wellness Visit 2007 Zoster Vaccines (2 of 3) 03/17/2016 016, 07/23/2015, 01/23/2015 ASCVD LDL 03/02/2024 03/02/2023 Lipid Panel 03/02/2024 03/02/2023 PHQ-2 (Physician [place]) 07/11/2024 09/30/2023 COVID-19 Vaccine ( season) 2024 04/04/2024, 04/01/2023, 03/31/2022, Additional history exists Hemoglobin A1C 04/26/2025 10/25/2024, 07/11, 02/13/2024, Additional history exists Pneumococcal Vaccine: 50+ Years Completed 12/15/2021, 09/07/2021 RSV Immunization or [...] Procedure Name Priority Date/Time Associated Diagnosis Comments HEMOGLOBIN, GLYCOSYLATED Routine 10/25/2024 Type 2 diabetes mellitus with stage 3b chronic kidney disease, without long-term current use of insulin ([facility] H[facility]/HCC) LIPID PANEL STAT 03/02/2023 6:45 AM CDT SOB (shortness of breath) Abnormal stress test Screening cholesterol level Type 2 diabetes mellitus with other specified complication, without long-term current use of insulin from Last 3 Months or Most Recently Relevant to Health Maintenance Results * HEMOGLOBIN, GLYCOSYLATED (10/25/2024) HGB A1C 6.1 % [id number] [address] 10/25/2024 Concepcion Cantu APRN LABORATORY Final Resu lt [phone] [address], [place] [address] [place] [address], * LIPID PANEL (03/02/2023 6:45 AM CDT) CHOLESTEROL 151 <200 MG/DL 03/02/2023 7:20 AM CDT [facility] TRIGLYCERIDES 83 <150 MG/DL 03/02/2023 7:20 AM CDT [facility] HDL 70 >40.0 MG/DL 03/02/2023 7:20 AM CDT [facility] LDL (CALCULATED) 64 <100 MG/DL 03/02/20 7:20 AM CDT [facility] NON HDL CHOLESTEROL 81 <130 MG/DL 03/02 7:20 AM CDT [facility] CHOL/HDL RATIO 2.2 0.0 - 4.5 03/02/2023 7:20 AM CDT [facility] VLDL CALCULATION 17 5 - 55 MG/DL 03/02/2023 7:20 AM CDT [facility] LIPID INTERPRETATION 03/02/2023 7:20 AM CDT [facility] Comment: NIH CONCENSUS REPORT RECOMMENDATIONS: ADULT CHILD LOW RISK: CHOLESTEROL <200 <170 TRIGLYCERIDE <150 --- HDL >=60 --- LDL <100 <110 BORDERLINE: CHOLESTEROL 200-239 170-199 TRIGLYCERIDE 150-199 --- HDL 40-59 --- LDL 100-159 110-129 HIGH RISK: CHOLESTEROL >=240 >=200 TRIGLYCERIDE >=200 --- HDL <40 --- LDL >=160 >=130 03/02/2023 6:45 AM CDT us Jaxon Connor MD,PHD LABORATORY Final Re sult [facility] [address] [place] [address], from Last 3 Months or Most Recently Relevant to Health Maintenance Insurance AET Advance Directives * Full Code (Latest Code Status on File) Date Activated Date Inactivated Comments 03/02/2023 8:58 AM 03/02/2023 3:02 PM Care Teams Mortgage Loan Interviewer Relationship Specialty Start Date End Date Concepcion Cantu APRN [address] [place] [address] PCP - General NURSE PRACTITIONER 12/02/22 Jaxon Connor MD,PHD [address] [place] [address] Physician CARDIOVASCULAR DISEASE 01/15/23
--- OUTSIDE RECORDS SUMMARY | 2025-02-12 15:58 | XMS_ITS | Referral Summary ---
Author Organization [facility] Address [address] [place] [address] Care Team Providers Care Manager Income Tax Name Role Phone Concepcion Cantu NP Primary Care Provider +1- [phone] Encounters Date Type Department Care Team Description 12/31/2024 3:30 PM CDT Procedure visit [facility] Otolaryngology [address] [place] [address], [address] [place] [address] Tomeka Smith Au.D. 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
--- OUTSIDE RECORDS SUMMARY | 2025-02-12 15:58 | XMS_ITS | Clinical Summary ---
Author Organization [facility] Address [address] [place] [address] Care Team Providers Care Field Hockey Coach Name Role Phone Concepcion Cantu GLOBAL CLIMATE CHANGE RESEARCHER Primary Care Provider +1- [phone] Allergies No known active allergies Medications amLODIPine [...] 1 packet 08/18/19 22 Active HYDROcodone-ac etaminophen ([place]) 5-325 mg per tabletIndicati ons:Pain Take 1 [...] Description 12/31/2024 3:30 PM CDT Procedure visit [facility] Otolaryngology [address] [place] [address], [address] [place] [address] Tomeka Smith Au.D. 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 Gender Identity Not on file Sexual [...] 03/17/2016 01/21/20 16, 07/23/2015, 01/23/2015 Covid-19 Vaccine (4 - 2023-2 5 season) 2024 04/27/2021, 09/17/2020, 08/27/2020 Influenza Vaccine (#1) 2025 4, 04/27/2021, 04/16/2020, Additional history exists Pneumococcal vaccine 65+ Completed 12/15/2021, 08/12 Insurance AETNA SENIOR SUPPLEMENT MEDICARE MEDICARE AETNA SENIOR SUPPLEMENT Care Teams Field Hockey Coach Relationship Specialty [place] [address] [address] [facility] [address] [place] [address] PCP - General Nurse Practitioner 12/31/24
--- OUTSIDE RECORDS SUMMARY | 2025-02-12 15:58 | XMS_ITS | Encounter Summary ---
Author Organization [facility] Address [address] [place] [address] Care Team Providers Care Vacuum Cleaner Operator Name Role Phone Concepcion Cantu APRN Primary Care Provider +1- [phone] Jaxon Connor MD,PHD Unavailable Unavail able Encounter Details Date Type Department Care Team (Late st Contact Info) Description 03/01/2023 Hospital Orders Only [facility] University Librarian [address] [place], [place] [id number] Jaxon Connor MD,PHD Social History Tobacco Use [...] on file documented as of this encounter Functional Status * Calculated C-SSRS Risk Score (Lifetime/Recent) Answer Date of Assessment Author Status No Risk Indicated 03/02/2023 7:23 AM CDT Dylan Sarkar RN Active * [place] Suicide Severity Rating Scale (Screener/Recent Self-Report) Question Answer Date of Assessment Author Status 1. Wish to be (Past 1 Month) No 03/02/2023 7:23 AM CDT Dylan Sarkar RN Active 2. Non-Specific Active Suici agata Thoughts (Past 1 Month) No 03/02/2023 7:23 AM CDT Dylan Sarkar RN Active 6. Suicidal Behavior (Lifetime) No 03/02/2023 7:23 AM CDT Dylan Sarkar RN Active documented as of this encounter Plan of Treatment Upcoming Encounters Date Type Department Care Team (Late st Contact Info) Description 04/04/2025 4:00 PM CDT Office Visit [facility] Medical Group Family & Internal Medicine [facility] [address] [place] [address] Concepcion Cantu APRN [address] [facility] [address] [place] [address] 04/15/2025 1:30 PM CDT Office Visit [facility] [place] [address] Moreno Tomas MD [facility], [address] [place] [address] documented as of this encounter Visit Diagnoses Not on filedocumented in this encounter Care Teams Vacuum Cleaner Operator Relationship Specialty Start Date End Date Concepcion Cantu APRN [address] [place] [address] PCP - General NURSE PRACTITIONER 12/02/22 Jaxon Connor MD,PHD [address] [facility] [address] [place] [address] Physician CARDIOVASCULAR DISEASE 01/15/23 documented as of this encounter
--- OUTSIDE RECORDS SUMMARY | 2025-02-12 15:58 | XMS_ITS | Clinical Summary ---
Author Organization [facility] Address [address] [facility] [place] [address] Phone Care Team Providers Care Hot Patcher Name Role Phone Renan José DO Primary Care Provider Social History Tobacco Use Types Packs/Day Years Used Date Smoking Tobacco: Never Assessed Sex and Gender Information Value Date Recorded Sex Assigned at Not on file Legal Sex Male 2:34 PM REFLESHER Gender Identity Not on file Sexual Orientation Not on file Plan of Treatment Health Maintenance Due Date Last Done Comments DTAP/TDAP/TD VACCINES (1 - Tdap) 1961 ZOSTER VACCINE (2 of 3) 03/17/2016 01/21/20 16, 07/23/2015, 01/23/2015 RSV VACCINE (60+ or ) (1 - 1-dose 75+ series) 2017 PNEUMOCOCCAL VACCINE 50+ YEA RS (2 of 2 - PCV20 or PCV21) 09/07/2022 09/07/2021 INFLUENZA VACCINE (#1) 2025 04/20/2017 Insurance MEDICARE PART A AND B AETNA MEDICARE SUPP AESSI Care Teams Hot Patcher Relationship Specialty Start Date End Date Renan José DO [address] [facility] [address] [place] [address] PCP - General Internal Medicine 09/08/21
--- OUTSIDE RECORDS SUMMARY | 2025-02-12 15:58 | XMS_ITS | Clinical Summary ---
Author Organization [facility] Address [address], [facility] [address] [place] [address] Phone Care Team Providers Care Edge Bander Operator Name Role Phone Concepcion Cantu APRN, KNIFE SETTER Primary Care Provide r Flavio Farrell MD Unavailable [phone] Allergies No known active allergies Medications finasteride [...] MOUTH EVERY DAY 90 Tablet 4 Active azelastine (OPTIVAR) 0.05 % Solution instill 1 drop into each eye twice daily Active Active Problems Problem Noted Date Diagnosed Date Iron deficiency anemia due to chronic blood loss 03/01/2024 Anemia in stage 3b chronic kidney disease 2023 Encounters Date Type Department Care Team Description 01/03/2025 2:45 PM CDT Lab [facility] [address] [place] [address] Nurse, Cc [place] Anemia in stage 3b chronic kidney disease (HCC) 01/03/2025 1:30 PM CDT Office Visit [facility] [address] [place] [address] Racheal Meade, TELEPHONE INTERCEPTOR OPERATOR, KNIFE SETTER Folic acid deficiency (Primary Dx); Anemia in stage 3b chronic kidney disease (HCC); Iron deficiency anemia due to chronic blood loss; Thrombocytopenia (HCC) 01/03/2025 Travel from Last 3 Months Family History [...] Sign Reading Time Taken Comments Blood Pressure 136/86 01/03/2025 2:13 PM CDT Pulse 60 01/03/2025 2:13 PM CDT Temperature 36.6 C (97.9 F) 01/03/2025 2:13 PM CDT Respiratory Rate 20 01/03/2025 2:13 PM CDT Oxygen Saturation 96% 01/03/2025 2:13 PM CDT Inhaled Oxygen Concentration - - Weight 113.3 kg (249 lb 12.8 oz) 01/03/2025 2:13 PM CDT Height 185.4 cm (6' 1) 01/03/2025 2:13 PM CDT Body Mass Index 32.96 01/03/2025 2:13 PM CDT Plan of Treatment Upcoming Encounters Date Type Department Care Team (Late st Contact Info) Description 05/02/2025 1:30 PM CDT Office Visit [facility] [address] [place] [address] Flavio Farrell MD [address] [place] [address] Health Maintenance Due Date Last Done Comments Hepatitis C Virus (HCV) Screening 1940 TdaP Immunization 1940 Zoster Immunization (2 of 3) 03/17/2016, 07/23/2015, 01/23/2015 SARS-COV-2 Immunization ( season) 2024 04/04/2024, 04/01/2023, 03/31/2022, Additional history exists Influenza Immunization (#1) 03/11/202503/12, 04/01/2023, 05/13/2022, Additional history exists Pneumococcal Immunization (50+ years) Completed 12/15/2021, 09/07/2021 Respiratory Syncytial Virus (RSV) Immunization (Adult) Completed 02/14/2024 Hepatitis B Immunization Aged Out No longer eligible based on patient's age to complete this topic Human Papillomavirus (HPV) Immunization Aged Out No longer eligible based on patient's age to complete this topic Meningococcal Immunization (ACWY) Aged Out No longer eligible based on patient's age to complete this topic Rotavirus Immunization Aged Out No lo nger eligible based on patient's age to complete this topic Procedures Procedure Name Priority Date/Time Associated Diagnosis Comments CBC WITH AUTO DIFF OH Routine 01/03/2025 2:33 PM CDT CMP (COMPREHENSIVE METABOLIC PANEL) Routine 01/03/2025 2:33 PM CDT Anemia in stage 3b chronic kidney disease (HCC) LACTATE DEHYDROGENASE (LD) Routine 01/03/2025 2:33 PM CDT Anemia in stage 3b chronic kidney disease (HCC) HAPTOGLOBIN Routine 01/03/2025 2:33 PM CDT Anemia in stage 3b chronic kidney disease (HCC) VITAMIN B12 Routine 01/03/2025 2:33 PM CDT Anemia in stage 3b chronic kidney disease (HCC) FOLIC ACID (FOLATE) Routine 01/03/2025 2 :33 PM CDT Anemia in stage 3b chronic kidney disease (HCC) FERRITIN Routine 01/03/2025 2:33 PM CDT Anemia in stage 3b chronic kidney disease (HCC) RETICULOCYTE COUNT (RETIC) Routine 01/03/2025 2:33 PM CDT Anemia in stage 3b chronic kidney disease (HCC) IRON W/ IRON BINDING CAPACITY OH Routine 01/03/2025 2:33 PM CDT Anemia in stage 3b chronic kidney disease (HCC) from Last 3 Months Results * IRON W/ IRON BINDING CAPACITY OH (01/03/2025 2:33 PM CDT) IRON 82 50 - 212 ug/dL [facility] UIBC 266 155 - 355 ug/dL [facility] TIBC 348 261 - 478 ug/dl [facility] % Saturation 24 20 - 50 % [facility] 01/03/2025 2:33 PM CDT Narrative [facility] 01/04/2025 8:43 AM CDT Release to patient->Immediate Flavio Farrell MD LAB SEND OUTS Final Resul t [facility] [place] [address], [place] [phone] * (ABNORMAL) CBC WITH AUTO DIFF [place] (01/03/2025 2:33 PM CDT) WBC 4.7 4.0 - 10.0 10*3/uL [facility] HGB 14.1 13.7 - 17.5 g/dL [facility] [facility] HCT 42.9 40.1 - 51.0 % [facility] [employer] [facility] [facility] PLT 87(L) 163 - 369 10*3/uL [facility] [facility] MPV 10.5 9.4 - 12.4 fL [facility] [facility] RBC 4.76 4.63 - 6.08 10*6/uL [facility] [facility] [facility] MCV 90 79 - 95 fL [facility] MCH 29.6 25.6 - 32.2 pg [facility] [employer] [facility] MCHC 32.9 32.2 - 36.5 g/dL [facility] [facility] [facility] RDW 14.0 11.6 - 14.4 % [facility] Neutrophils % 63.3 36.0 - 66.0 % [facility] Lymphocytes % 24.0 19.0 - 40.0 % [facility] Monocytes % 9.0 4.1 - 12.1 % [facility] Eosinophils % 2.4 0.0 - 3.5 % [facility] Basophils % 0.9 0.0 - 1.0 % [facility] Absolute Neutrophils 3.0 1.4 - 6.6 10*3/uL [facility] Absolute Lymphocytes 1.1 0.8 - 4.0 10*3/uL [facility] Absolute Monocytes 0.4 0.2 - 1.2 10*3/uL [facility] Absolute Eosinophils 0.1 0.0 - 0.4 10*3/uL [facility] Absolute Basophils 0.0 0.0 - 0.1 10*3/uL [facility] 01/03/2025 2:33 PM CDT us Flavio Farrell MD LAB SEND OUTS Final Resul t [facility] [place] [address], * VITAMIN B12 (01/03/2025 2:33 PM CDT) Vitamin B12 243 180 - 914 pg/mL [facility] Blood 01/03/2025 2:33 PM CDT [facility] 01/04/2025 2:24 PM CDT Release to patient->Immediate us Flavio Farrell MD CHEMISTRY ORDERABLES Final Result Performing Organization Address [facility] de Phone Number [facility] [place] [address], * RETICULOCYTE COUNT (RETIC) (01/03/2025 2:33 PM CDT) Pathologist [facility] Reticulocyte count 1.59 0.51 - 1.81 % [facility] RET-He 32.90 28.20 - 36.60 pg [facility] Comment: RET-He is a direct assessment of incorporation of iron into erythrocyte hemoglobin. It provides an indirect measure of the iron available for new erythropoiesis over past 2-4 days. Blood 01/03/2025 2:[address] [facility] - 01/03/2025 4:12 PM CDT Release to patient->Immediate us Flavio Farrell MD HEMATOLOGY ORDERABLES Final Result Performing Organization Address [facility] de Phone Number [facility] [place] [address], * (ABNORMAL) LACTATE DEHYDROGENASE (LD) (01/03/2025 2:33 PM CDT) LDH 134(L) 140 - 271 U/L [facility] Blood 01/03/2025 2:33 PM CDT [facility] - 01/04/2025 8:43 AM CDT Release to patient->Immediate us Flavio Farrell MD CHEMISTRY ORDERABLES Final Result Performing Organization Address [facility] Co de Phone Number [facility] [address] [place] [address], * HAPTOGLOBIN (01/03/2025 2:33 PM CDT) HAPTO 65 44 - 215 mg/dL [facility] Blood 01/03/2025 2:33 PM CDT Narrative [facility] - 01/04/2025 1:42 PM CDT Release to patient->Immediate IS THE PATIENT REQUIRED TO BE FASTING FOR 12 HOURS?->No us Flavio Farrell MD CHEMISTRY ORDERABLES Final Result Performing Organization Address [facility] Co de Phone Number [facility] [place] [address], * FOLIC ACID (FOLATE) (01/03/2025 2:33 PM CDT) Folate >20.00 >=5.90 ng/mL [facility] Blood 01/03/2025 2:33 PM CDT [facility] - 01/04/2025 2:24 PM CDT Release to patient->Immediate us Flavio Farrell MD CHEMISTRY ORDERABLES Final Result Performing Organization Address [facility] Co de Phone Number [facility] [address] [place] [address], * FERRITIN (01/03/2025 2:33 PM CDT) Ferritin 214 24 - 336 ng/mL [facility] Blood 01/03/2025 2:33 PM CDT Narrative [facility] - 01/04/2025 2:24 PM CDT Release to patient->Immediate us Flavio Farrell MD CHEMISTRY ORDERABLES Final Result [facility] [place] [address], * (ABNORMAL) CMP (COMPREHENSIVE METABOLIC PANEL) (01/03/2025 2:33 PM CDT) Glucose 145(H) 70 - 105 mg/dL [facility] Blood Urea Nitrogen 23 7 - 25 mg/dL [facility] Creatinine 1.9(H) 0.7 - 1.3 mg/dL [facility] Sodium 143 136 - 145 mEq/L [facility] Potassium 4.3 3.5 - 5.1 mEq/L [facility] Chloride 106 98 - 107 mEq/L [facility] Bicarbonate 30 21 - 31 mEq/L [facility] Total Bilirubin 0.6 0.3 - 1.0 mg/dL [facility] Alk. Phosphatase 80 34 - 104 U/L [facility] Aspartate Aminotransferase 11(L) 13 - 39 U/L [facility] Alanine Aminotransferase 12 7 - 52 U/L [facility] Total Protein 6.7 6.4 - 8.9 g/dL [facility] Albumin 4.4 3.5 - 5.7 g/dL [facility] Calcium 8.9 8.6 - 10.3 mg/dL [facility] Anion Gap 11.3 7.0 - 15.0 mEq/L [facility] Globulin 2.3 2.0 - 3.5 g/dL [facility] EGFR 35(L) >60 ml/min/1. 73m2 [facility] Comment: This eGFR is calculated using 2020 CKD-EPI Creatinine equation without race modifier based on the NKF-ASN task force recommendations Equation: sEJT=283*min(SCr/k,1)a*max(SCr/k,1)-1.200*0.9938Age*1.012 (if female), where SCr is serum creatinine, k is 0.7 for females and 0.9 for males, and a is -0.241 for females and -0.302 for males Blood 01/03/2025 2:33 PM CDT Narrative [facility] - 01/04/2025 8:43 AM CDT Release to patient->Immediate IS THE PATIENT REQUIRED TO BE FASTING FOR 8 HOURS?->No Flavio Farrell MD CHEMISTRY ORDERABLES Final Result [facility] [address] [place] [address], from Last 3 Months Insurance MEDICARE [facility] Care Teams Edge Bander Operator Relationship Specialty Start Date End Date Concepcion Cantu, TELEPHONE INTERCEPTOR OPERATOR, KNIFE SETTER [address] [place], [place] [id number] PCP - General Advanced Practice Nurse 10/10/23 [place] [address] [place] [address] Consulting Physician Oncology 10/10/23
[2025-02-12 16:59] LABS: Albumin Level 4.1 g/dL (3.5-5.1); Anion Gap 7 mmol/L (4-12); Blood Urea Nitrogen 23 mg/dL (9-20); Calcium 9.3 mg/dL (8.4-10.2); Carbon Dioxide 27 mmol/L (22-30); Chloride 102 mmol/L (98-107); Estimated Glomerular Filt Rate 35; Glucose 144 mg/dL (65-110); Potassium 4.4 mmol/L (3.4-5.0); Sodium 136 mmol/L (137-145)
[2025-02-12 17:10] LABS: Add Urine Microscopic? YES; Appearance Urine Cloudy (Clear); Glucose Urine UA Negative (Negative); Leukocyte Esterase Ur 3+ LEU/UL (Negative); Nitrate Urine Negative (Negative); Non Pathogenic Casts 0-2; Specific Grav Ur 1.005 (1.001-1.035)
[2025-02-12 17:21] LABS: Total Protein Urine Random 43 mg/dL; Ur Ttl Prot Creatinine Ratio 1.37 mg/mg (0-0.20)
== END 2025-02-12 15:54 | disposition home or self-care (01) ==
PROVIDERS: PCP Registered Nurse; Visit Provider Internal Medicine Nephrology
DX: I12.9 Hypertensive chronic kidney disease with stage 1 through stage 4 chronic kidney disease, or unspecified chronic kidney disease (principal); E11.22 Type 2 diabetes mellitus with diabetic chronic kidney disease; N18.32 Chronic kidney disease, stage 3b; R31.9 Hematuria, unspecified
CPT/HCPCS: 36415; 80069; 81001; 82570; 84156; 86037; 86160; 86225; 87086

== ENCOUNTER 2025-06-18 16:34 | Outpatient (CLI) | payer MEDICARE, SELFPAY ==
[2025-06-18 17:07] LABS: Total Protein Urine Random 54 mg/dL; Ur Ttl Prot Creatinine Ratio 1.42 mg/mg (0-0.20)
[2025-06-18 17:12] LABS: Albumin Level 4.4 g/dL (3.5-5.1); Anion Gap 5 mmol/L (4-12); Blood Urea Nitrogen 17 mg/dL (9-20); Calcium 9.2 mg/dL (8.4-10.2); Carbon Dioxide 27 mmol/L (22-30); Chloride 107 mmol/L (98-107); Estimated Glomerular Filt Rate 34; Glucose 153 mg/dL (65-110); Potassium 4.4 mmol/L (3.4-5.0); Sodium 139 mmol/L (137-145)
[2025-06-18 17:24] LABS: Parathyroid Intact 49.1 pg/mL (14.5-75.2)
--- OUTSIDE RECORDS SUMMARY | 2025-06-18 19:00 | XMS_ITS | Encounter Summary ---
Author Organization [facility] Address [address] [place] [address] Care Team Providers Care Highway Safety Engineer Name Role Phone Concepcion Cantu APRN Primary Care Provider [phone] Jaxon Connor MD,PHD Unavailable Unavail able Encounter Details Date Type Department Care Team (Late st Contact Info) Description 03/01/2023 Hospital Orders Only [facility] Activity Director [address] [address] Jaxon Connor MD,PHD Social History [...] Sex Male 5:40 PM CDT Gender Identity Male 04/01/2025 1:59 PM CDT Sexual Orientation Straight 04/01/2025 1: 59 PM CDT documented as of this encounter Functional Status * Calculated C-SSRS Risk Score (Lifetime/Recent) Answer Date of Assessment Author Status No Risk Indicated 03/02/2023 7:23 AM CDT Dylan Sarkar RN Active * [place] Suicide Severity Rating Scale (Screener/Recent Self-Report) Question [...] Care Team (Late st Contact Info) Description 07/08/2025 3:40 PM SUPERVISORY INVESTIGATIVE SPECIALIST Office Visit [facility] Family [facility] Internal Medicine [facility] [address] [place] [address] Concpecion Cantu APRN [phone] [address] documented as of this encounter Visit Diagnoses Not on filedocumented in this encounter Care Teams Highway Safety Engineer Relationship Specialty Start Date End Date Concepcion Cantu APRN [phone] [address] PCP - General NURSE PRACTITIONER 12/02/22 Jaxon Connor MD,PHD [address] [facility] [address] [place] [address] Physician CARDIOVASCULAR DISEASE 01/15/23 documented as of this encounter
--- OUTSIDE RECORDS SUMMARY | 2025-06-18 19:00 | XMS_ITS | Clinical Summary ---
Author Organization [facility] Address [address] [place] [address] Care Team Providers Care Iron Miner Name Role Phone Concepcion Cantu CELESTINA Primary Care Provider [phone] Jaxon Connor MD,PHD Unavailable Unavail able Allergies Active Allergy Reactions Criticality Noted Date Comments Amlodipine Angioedema 07/29/2024 Medications Vitamin D3 (CHOLECALCIFEROL) 50 mcg tablet Take 1 tablet (50 mcg total) by mouth daily. Active folic acid (FOLVITE) 1 MG tabletIndications:Folat e deficiency Take 1 tablet (1 mg total) by mouth daily. 90 tablet 2 07/26/19 25 Active azelastine (OPTIVAR) 0.05 % ophthalmic solutionIndications:All ergic rhinoconjunctivitis of left eye Place 1 drop into both eyes 2 (two) times daily. 6 mL 3 10/29/19 25 Active cloNIDine (CATAPRES) 0.1 MG tabletIndications:Prima ry hypertension Take 1 tablet (0.1 mg total) by mouth 2 (two) times daily. 120 tablet 2 04/04/20 25 Active omeprazole (PRILOSEC) 20 MG capsuleIndications:Karan roesophageal reflux disease without esophagitis Take 1 capsule (20 mg total) by mouth daily. 90 capsule 2 04/04/20 25 Active linaGLIPtin (TRADJENTA) 5 MG tabletIndications:Type 2 diabetes mellitus with stage 3b chronic kidney disease, with long-term current use of insulin ([facility]/HCC) Take 0.5 tablets (2.5 mg total) by mouth daily. 90 tablet 2 04/04/20 Active finasteride (PROSCAR) 5 MG tabletIndications:Benig n prostatic hyperplasia with incomplete bladder emptying Take 1 tablet (5 mg total) by mouth daily. 90 tablet 2 04/04/20 Active tamsulosin (FLOMAX) 0.4 MG CapIndications:Benign prostatic hyperplasia with incomplete bladder emptying Take 1 capsule (0.4 mg total) by mouth nightly. 90 capsule 2 04/04/20 Active levothyroxine (SYNTHROID) 112 MCG tabletIndications:Acqui red hypothyroidism Take 1 tablet (112 mcg total) by mouth daily. 90 tablet 2 04/04/20 Active losartan (COZAAR) 50 MG tabletIndications:Prima ry hypertension Take 1 tablet (50 mg total) by mouth daily. 90 tablet 1 04/04/20 Active Active Problems Problem Noted Date Diagnosed Date Abdominal distention 04/04/2025 History of colon cancer 04/04/2025 History of renal pelvis cancer 04/04/2025 Hyperlipidemia 04/04/2025 Pernicious anemia 04/04/2025 Polyosteoarthritis, unspecified 04/04/2025 S/P tooth extraction 04/04/2025 Vitamin D deficiency, unspecified 04/04/2025 Anemia in stage 3b chronic kidney disease 2023 Iron deficiency anemia due to chronic blood loss 03/01/2024 Carotid atherosclerosis, unspecified laterality 02/14/2024 Pulmonary emphysema, unspecified emphysema type 02/14/2024 Type 2 diabetes mellitus wit h stage 3b chronic kidney disease, with long-term current use of insulin 02/14/2024 Iron deficiency 07/06/2023 Upper respiratory tract infection, unspecified t ype 07/06/2023 Gastroesophageal reflux disease without esophagi tis 07/06/2023 Stage 3b chronic kidney disease 01/15/2023 Acquired hypothyroidism 12/12/2022 Type 2 diabetes mellitus wit h stage 3b chronic kidney disease, without long-term current use of insulin 12/12/2022 Primary hypertension 12/12/2022 Shortness of breath on exertion 12/12/2022 Hx of thyroid cancer 12/12/2022 Resolved Problems Problem Noted Date Diagnosed Date Resolved Date Malignant neoplasm of colon 04/14/2011 12/27/2022 Overview (12/12/2022): Description: 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 cell carcinoma 04/14/2011 023 Overview (12/12/2022): Description: 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 Pt c/o of ongoing hiccups for 3 days ); Diabetes; Leg Pain (Left leg weakness and pain ) 04/04/2025 Travel from Last 3 Months Immunizations Immunization Administration [...] 12/15/2021 Pneumococcal (Prevnar 13) 09/07/2021 Zoster (Zostavax) 06548 Unt/0.65Ml 01/21/2016,,01/23/2015 Family History Medical History Relation Comments Hypertension Brother Emphysema Father Aneurysm Mother Relation Status Comments Brother Alive Father Mother Social History Tobacco Use Types Packs/Day Years Used Date Smoking Tobacco: Never Smokeless Tobacco: Never Tobacco Cessation:Counseling Given: No Alcohol Use Standard Drinks/Week Comments Never 0 [...] Orientation Straight 04/01/2025 1: 59 PM CDT Last Filed Vital Signs Vital Sign Reading Time Taken Comments Blood Pressure 168/88 04/04/2025 3:57 PM CDT Pulse 53 04/04/2025 3:31 PM CDT Temperature 36.7 C (98.1 F) 04/04/2025 3:31 PM CDT Respiratory Rate 20 04/04/2025 3:31 PM CDT Oxygen Saturation 96% 04/04/2025 3:31 PM CDT Inhaled Oxygen Concentration - - Weight 117 kg (258 lb) 04/04/2025 3:31 PM CDT Height 185.4 cm (6' 1) 04/04/2025 3:31 PM CDT Body Mass Index 34.04 04/04/2025 3:31 PM CDT Plan of Treatment Upcoming Encounters Date Type Department Care Team (Late st Contact Info) Description 07/08/2025 3:40 PM SAW OPERATOR Office Visit [facility] - [place] [id number] [place] [address] Concepcion Cantu, LAST CLEANER [address] [address] Health Maintenance Due Date Last Done Comments ASCVD Statin 1942 Kidney Health Evaluation 1942 Diabetes: Retinopathy Eye Exam 1960 DTaP, Tdap and Td Vaccines (1 - Tdap) 1961 Annual Medicare Wellness Visit 2007 Zoster Vaccines (2 of 3) 03/17/2016 016, 07/23/2015, 01/23/2015 ASCVD LDL 03/02/2024 03/02/2023 Lipid Panel 03/02/2024 03/02/2023 PHQ-2 (Physician [place]) 07/11/2024 09/30/2023 COVID-19 Vaccine ( season) 2025 04/04/2024, 04/01/2023, 03/31/2022, Additional history exists Influenza Adult (#1) 2025 04/04/2024, 05/13/2022, 04/27/2021, Additional history exists Hemoglobin A1C 10/02/2025 04/04/2025, 10/09, 07/26/2024, Additional history exists Pneumococcal Vaccine: 50+ Years Completed 12/15/2021, 09/07/2021 RSV Immunization or 60+ Years Completed 02/14/2024 Hepatitis A Vaccines Aged Out No long er eligible based on patient's age to complete this topic Meningococcal B Vaccine Aged Out No l onger eligible based on patient's age to complete this topic Meningococcal Vaccine Aged Out No gerardo galileo eligible based on patient's age to complete this topic RSV Immunizations Under 20 Months Aged Out No longer eligible based on patient's age to complete this topic Procedures Procedure Name Priority Date/Time Associated Diagnosis Comments HEMOGLOBIN, GLYCOSYLATED Routine 04/04/2025 Type 2 diabetes mellitus with stage 3b chronic kidney disease, with long-term current use of insulin ([facility]) COLLECT.CAPILLARY (FNGR,HEEL,EAR) Routine 04/04/2025 Type 2 diabetes mellitus with stage 3b chronic kidney disease, with long-term current use of insulin ([facility]) LIPID PANEL STAT 03/02/2023 6:45 AM CDT SOB (shortness of breath) Abnormal stress test Screening cholesterol level Type 2 diabetes mellitus with other specified complication, without long-term current use of insulin from Last 3 Months or Most Recently Relevant to Health Maintenance Results * HEMOGLOBIN, GLYCOSYLATED (04/04/2025) HGB A1C 5.9 % [id number] Carissa PHAM [place] 04/04/2025 us Concepcion Cnatu APRN LABORATORY Final Resu lt [id number] [facility], [place] [address] [place] [address], [place] [phone] * COLLECT.CAPILLARY (FNGR,HEEL,EAR) (04/04/2025) us Concepcion Noemi Alondra LAST CLEANER PROCEDURES-UNRESULTED Eva l Result [facility] * LIPID PANEL (03/02/2023 6:45 AM CDT) CHOLESTEROL 151 <200 MG/DL 03/02/2023 7:20 AM CDT [facility] TRIGLYCERIDES 83 <150 MG/DL 03/02/2023 7:20 AM CDT [facility] HDL 70 >40.0 MG/DL 03/02/2023 7:20 AM CDT [facility] LDL (CALCULATED) 64 <100 MG/DL 03/02/20 7:20 AM CDT [facility] NON HDL CHOLESTEROL 81 <130 MG/DL 03/02 7:20 AM CDT [facility] CHOL/HDL RATIO 2.2 0.0 - 4.5 03/02/2023 7:20 AM CDT [facility] VLDL CALCULATION 17 5 - 55 MG/DL 03/02/2023 7:20 AM CDT [facility] LIPID INTERPRETATION 03/02/2023 7:20 AM CDT [facility] Comment: NIH CONCENSUS REPORT RECOMMENDATIONS: ADULT CHILD LOW RISK: CHOLESTEROL <200 <170 TRIGLYCERIDE <150 --- HDL >=60 --- LDL <100 <110 BORDERLINE: CHOLESTEROL 200-239 170-199 TRIGLYCERIDE 150-199 --- HDL 40-59 --- LDL 100-159 110-129 HIGH RISK: CHOLESTEROL >=240 >=200 TRIGLYCERIDE >=200 --- HDL <40 --- LDL >=160 >=130 03/02/2023 6:45 AM CDT us Jaxon Connor MD,PHD LABORATORY Final Re sult [facility] [address] [place] [address], from Last 3 Months or Most Recently Relevant to Health Maintenance Insurance MEDICARE [employer] Advance Directives * Full Code (Latest Code Status on File) Date Activated Date Inactivated Comments 03/02/2023 8:58 AM 03/02/2023 3:02 PM Care Teams Iron Miner Relationship Specialty Start Date End Date Concepcion Cantu APRN [address] [place], [place] [id number] PCP - General NURSE PRACTITIONER 12/02/22 Jaxon Connor MD,PHD [address] [place] [address] Physician CARDIOVASCULAR DISEASE 01/15/23
--- OUTSIDE RECORDS SUMMARY | 2025-06-18 19:00 | XMS_ITS | Clinical Summary ---
Author Organization [facility] on Address [address] [facility] [place] [address] Phone Care Team Providers Care Cow Trimmer Name Role Phone Renan José DO Primary Care Provider [phone] Social History Tobacco Use Types Packs/Day Years Used Date Smoking Tobacco: Never Assessed Sex and Gender Information Value Date Recorded Sex Assigned at Not on file Legal Sex Male 2:34 PM CABLE INSTALLER REPAIRER HELPER Gender Identity Not on file Sexual Orientation [...] B AETNA MEDICARE SUPP AESSI Care Teams Cow Trimmer Relationship Specialty Start Date End Date Renan José DO [address] [facility] [address] [place] [id number] PCP - General Internal Medicine 09/08/21
--- OUTSIDE RECORDS SUMMARY | 2025-06-18 19:00 | XMS_ITS | Clinical Summary ---
Author Organization [facility] Address [address] [place] [address] Care Team Providers Care Android Platform Developer Name Role Phone Concepcion Cantu GLUE MAKER Primary Care Provider [phone]- [phone] Allergies No known active allergies Medications amLODIPine [...] 1 packet 08/18/19 22 Active HYDROcodone-ac etaminophen ([place]) 5-325 mg per tabletIndicati ons:Pain Take 1 [...] of thyroid Thyroid Cancer - (Added by T W Conv) Personal history of other di seases of the circulatory system History of hypertension - (A dded by TW Conv) Gout Cancer (HCC) Diabetes mellitus Hypertension Thyroid disease Family History Relation Name [...] on file Legal Sex Male 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
--- OUTSIDE RECORDS SUMMARY | 2025-06-18 19:00 | XMS_ITS ---
Author Organization [facility] [place] Address [address] [place] [address] Care Team Providers Care Vice President Of Product Marketing Name Role Phone Concepcion Cantu CLAY ARTISAN Primary Care Provider [phone]- [phone] Active Problems Problem Noted Date Diagnosed Date [...]
--- OUTSIDE RECORDS SUMMARY | 2025-06-18 19:00 | XMS_ITS | Clinical Summary ---
Author Organization [facility] Address [address] [place] [address] Phone Care Team Providers Care Inbound Sales Consultant Name Role Phone Concepcion Cantu APRN, DIRECT MARKETING ANALYST Primary Care Provide r Flavio Farrell MD Unavailable [phone] Allergies No known active allergies Medications finasteride (PROSCAR) 5 MG Tablet Take 5 mg by mouth daily. 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 Active cloNIDine (CATAPRES) 0.1 MG Tablet Take 0.1 mg by mouth. Active Active Problems Problem Noted Date Diagnosed Date Iron deficiency anemia due to chronic blood loss 03/01/2024 Anemia in stage 3b chronic kidney disease 2023 Encounters Date Type Department Care Team Description 05/02/2025 2:15 PM CDT Lab [facility] [address] [place] [address] Nurse, Cc [place] Anemia in stage 3b chronic kidney disease 05/02/2025 1:30 PM CDT Office Visit [facility] [address] [place] [address] Racheal Meade, SECOND RIDE FARE COLLECTOR, DIRECT MARKETING ANALYST Anemia in stage 3b chronic kidney disease (Primary Dx); Iron deficiency anemia due to chronic blood loss; Thrombocytopenia 05/02/2025 Travel from Last 3 Months Family History [...] Sign Reading Time Taken Comments Blood Pressure 138/86 05/02/2025 1:47 PM CDT Pulse 51 05/02/2025 1:47 PM CDT Temperature 36.9 C (98.5 F) 05/02/2025 1:47 PM CDT Respiratory Rate 22 05/02/2025 1:47 PM CDT Oxygen Saturation 98% 05/02/2025 1:47 PM CDT Inhaled Oxygen Concentration - - Weight 116.1 kg (256 lb) 05/02/2025 1:47 PM CDT Height 185.4 cm (6' 1) 05/02/2025 1:47 PM CDT Body Mass Index 33.78 05/02/2025 1:47 PM CDT Plan of Treatment Upcoming Encounters Date Type Department Care Team (Late st Contact Info) Description 09/05/2025 1:30 PM HOME PERFORMANCE CONSULTANT Office Visit [facility] [address] [place] [address] Flavio Farrell MD [address] [place] [address] Health Maintenance Due Date Last Done Comments Hepatitis C Virus (HCV) Screening 1940 Medicare Initial AWV G0438 07/11/2008 Zoster Immunization (2 of 3) 03/17/2016, 07/23/2015, 01/23/2015 Influenza Immunization (#1) 03/11/202503/12, 04/01/2023, 05/13/2022, Additional history exists SARS-COV-2 Immunization ( season) 2025 04/04/2024, 04/01/2023, 03/31/2022, Additional history exists DTaP/Tdap/Td Immunization Discontinued 01/05/2007 TdaP Immunization Completed 01/05/2007 Pneumococcal Immunization (50+ years) Completed 12/15/2021, 09/07/2021, 01/06/2008 Respiratory Syncytial Virus (RSV) Immunization (Adult) Completed 02/14/2024 Hepatitis B Immunization Aged Out No longer eligible based on patient's age to complete this topic Human Papillomavirus (HPV) Immunization (No Doses Required) Completed Meningococcal Immunization (ACWY) Aged Out No longer eligible based on patient's age to complete this topic Rotavirus Immunization Aged Out No lo nger eligible based on patient's age to complete this topic Procedures Procedure Name Priority Date/Time Associated Diagnosis Comments CBC WITH AUTO DIFF OH Routine 05/02/2025 2:12 PM CDT CMP (COMPREHENSIVE METABOLIC PANEL) Routine 05/02/2025 2:12 PM CDT Anemia in stage 3b chronic kidney disease LACTATE DEHYDROGENASE (LD) Routine 05/02/2025 2:12 PM CDT Anemia in stage 3b chronic kidney disease FOLIC ACID (FOLATE) Routine 05/02/2025 2 :12 PM CDT Anemia in stage 3b chronic kidney disease VITAMIN B12 Routine 05/02/2025 2:12 PM CDT Anemia in stage 3b chronic kidney disease FERRITIN Routine 05/02/2025 2:12 PM CDT Anemia in stage 3b chronic kidney disease IRON W/ IRON BINDING CAPACITY OH Routine 05/02/2025 2:12 PM CDT Anemia in stage 3b chronic kidney disease RETICULOCYTE COUNT (RETIC) Routine 05/02/2025 2:12 PM CDT Anemia in stage 3b chronic kidney disease from Last 3 Months Results * IRON W/ IRON BINDING CAPACITY OH (05/02/2025 2:12 PM CDT) IRON 76 50 - 212 ug/dL [facility] UIBC 249 155 - 355 ug/dL [facility] TIBC 325 261 - 478 ug/dl [facility] % Saturation 23 20 - 50 % [facility] 05/02/2025 2:12 PM CDT Narrative [facility] - 05/03/2025 10:40 AM CDT Release to patient->Immediate Racheal Meade APRN, DIRECT MARKETING ANALYST LAB SEND OUTS Final Result [facility] [address] [place] [address], * (ABNORMAL) CBC WITH AUTO DIFF [place] (05/02/2025 2:12 PM CDT) WBC 5.5 4.0 - 10.0 10*3/uL [facility] HGB 13.2(L) 13.7 - 17.5 g/dL [facility] HCT 40.1 40.1 - 51.0 % [facility] PLT 92(L) 163 - 369 10*3/uL [facility] MPV 10.4 9.4 - 12.4 fL [facility] RBC 4.53(L) 4.63 - 6.08 10*6/uL [facility] MCV 89 79 - 95 fL [facility] MCH 29.1 25.6 - 32.2 pg [facility] MCHC 32.9 32.2 - 36.5 g/dL [facility] RDW 13.7 11.6 - 14.4 % [facility] Neutrophils % 66.5(H) 36.0 - 66.0 % [facility] Lymphocytes % 21.4 19.0 - 40.0 % [facility] Monocytes % 8.6 4.1 - 12.1 % [facility] Eosinophils % 2.4 0.0 - 3.5 % [facility] Basophils % 0.4 0.0 - 1.0 % [facility] Absolute Neutrophils 3.7 1.4 - 6.6 10*3/uL [facility] Absolute Lymphocytes 1.2 0.8 - 4.0 10*3/uL [facility] Absolute Monocytes 0.5 0.2 - 1.2 10*3/uL [facility] Absolute Eosinophils 0.1 0.0 - 0.4 10*3/uL [facility] Absolute Basophils 0.0 0.0 - 0.1 10*3/uL [facility] 05/02/2025 2:12 PM CDT us Racheal Meade SECOND RIDE FARE COLLECTOR, DIRECT MARKETING ANALYST LAB SEND OUTS Final Result [facility] [place] [address], * VITAMIN B12 (05/02/2025 2:12 PM CDT) Vitamin B12 239 180 - 914 pg/mL [facility] Blood 05/02/2025 2:12 PM CDT [facility] - 05/03/2025 2:48 PM CDT Release to patient->Immediate us Racheal Meade APRN, ИРИНА CHEMISTRY ORDERABLES Final Result Performing Organization Address [facility] de Phone Number [facility] Cancer Care [facility] [address] [place] [address], * RETICULOCYTE COUNT (RETIC) (05/02/2025 2:12 PM CDT) Reticulocyte count 1.51 0.51 - 1.81 % [facility] RET-He 33.90 28.20 - 36.60 pg [facility] Comment: RET-He is a direct assessment of incorporation of iron into erythrocyte hemoglobin. It provides an indirect measure of the iron available for new erythropoiesis over past 2-4 days. Blood 05/02/2025 2:12 PM CDT [facility] - 05/02/2025 3:48 PM CDT Release to patient->Immediate us Racheal Meade APRN, ИРИНА HEMATOLOGY ORDERABLES Final Result Performing Organization Address [facility] de Phone Number [facility] Cancer [facility] [address] [place] [address], * (ABNORMAL) LACTATE DEHYDROGENASE (LD) (05/02/2025 2:12 PM CDT) LDH 129(L) 140 - 271 U/L [facility] Blood 05/02/2025 2:12 PM CDT [facility] - 05/03/2025 10:40 AM CDT Release to patient->Immediate us Racheal Meade APRN, ИРИНА CHEMISTRY ORDERABLES Final Result Performing Organization Address City/[facility] de Phone Number [facility] [place] [address] [place] [address], * FOLIC ACID (FOLATE) (05/02/2025 2:12 PM CDT) Folate >20.00 >=5.90 ng/mL [facility] Blood 05/02/2025 2:12 PM CDT Narrative [facility] - 05/03/2025 2:48 PM CDT Release to patient->Immediate us Racheal Meade APRN, DIRECT MARKETING ANALYST CHEMISTRY ORDERABLES Final Result [facility] Cancer Care [address] [place] [address], [place] [phone] * FERRITIN (05/02/2025 2:12 PM CDT) Ferritin 171 24 - 336 ng/mL [facility] Blood 05/02/2025 2:12 PM CDT Narrative [facility] - 05/03/2025 2:48 PM CDT Release to patient->Immediate Racheal Meade APRN, DIRECT MARKETING ANALYST CHEMISTRY ORDERABLES Final Result [facility] Cancer Care [address] [place] [address], * (ABNORMAL) CMP (COMPREHENSIVE METABOLIC PANEL) (05/02/2025 2:12 PM CDT) Glucose 170(H) 70 - 105 mg/dL [facility] Blood Urea Nitrogen 15 7 - 25 mg/dL [facility] Creatinine 1.8(H) 0.7 - 1.3 mg/dL [facility] Sodium 143 136 - 145 mEq/L [facility] Potassium 4.0 3.5 - 5.1 mEq/L [facility] Chloride 105 98 - 107 mEq/L [facility] Bicarbonate 30 21 - 31 mEq/L [facility] Total Bilirubin 0.6 0.3 - 1.0 mg/dL [facility] Alk. Phosphatase 61 34 - 104 U/L [facility] Aspartate Aminotransferase 9(L) 13 - 39 U/L [facility] Alanine Aminotransferase 7 7 - 52 U/L [facility] Total Protein 6.1(L) 6.4 - 8.9 g/dL [facility] Albumin 4.0 3.5 - 5.7 g/dL [facility] Calcium 8.8 8.6 - 10.3 mg/dL [facility] Anion Gap 12.0 7.0 - 15.0 mEq/L [facility] Globulin 2.1 2.0 - 3.5 g/dL [facility] EGFR 37(L) >60 ml/min/1. 73m2 [facility] Comment: This eGFR is calculated using 2020 CKD-EPI Creatinine equation without race modifier based on the NKF-ASN task force recommendations Equation: gVWV=994*min(SCr/k,1)a*max(SCr/k,1)-1.200*0.9938Age*1.012 (if female), where SCr is serum creatinine, k is 0.7 for females and 0.9 for males, and a is -0.241 for females and -0.302 for males Blood 05/02/2025 2:12 PM CDT Narrative [facility] - 05/03/2025 10:40 AM CDT Release to patient->Immediate IS THE PATIENT REQUIRED TO BE FASTING FOR 8 HOURS?->No us Racheal Meade APRN, DIRECT MARKETING ANALYST CHEMISTRY ORDERABLES Final Result [facility] [place] [address], [place] [phone] from Last 3 Months Insurance MEDICARE [employer] [place] [address] Care Teams Inbound Sales Consultant Relationship Specialty Start Date End Date Concepcion Cantu APRN, DIRECT MARKETING ANALYST [address] [place] [address] PCP - General Advanced Practice Nurse 10/10/23 [place] [address] [place] [address] Consulting Physician Oncology 10/10/23
--- OUTSIDE RECORDS SUMMARY | 2025-06-18 19:00 | XMS_ITS | Encounter Summary ---
Author Organization [facility] Address [address] [place] [address] Phone Care Team Providers Care Director Of Physician Practices Name Role Phone Concepcion Cantu APRN, NURSE PRN Primary Care Provide r Flavio Farrell MD Unavailable [phone] Reason for Visit * Reason Comments Medication Refill Encounter Details Date Type Department Care Team (Late st Contact Info) Description 12/06/2023 Refill [facility] [address] [place] [address] Flavio Farrell MD [address] [place] [phone] Medication Refill Social History Tobacco Use [...] st Contact Info) Description 09/05/2025 1:30 PM STAFF RESEARCH ASSOCIATE Office Visit [facility] [address] [facility] [address] [place] [phone] Flavio Farrell MD [address] [place] [phone] documented as of this encounter Visit Diagnoses Not on filedocumented in this encounter Care Teams Director Of Physician Practices Relationship Specialty Start Date End Date Concepcion Cantu, SPECIAL EFFECTS MAKEUP ARTIST, [place] PRN [address] [place] [address] PCP - General Advanced Practice Nurse 10/10/23 [place] [address] [place] [address] Consulting Physician Oncology 10/10/23 documented as of this encounter
== END 2025-06-18 16:35 | disposition home or self-care (01) ==
PROVIDERS: PCP Registered Nurse; Visit Provider Internal Medicine Nephrology
DX: I12.9 Hypertensive chronic kidney disease with stage 1 through stage 4 chronic kidney disease, or unspecified chronic kidney disease (principal); E11.22 Type 2 diabetes mellitus with diabetic chronic kidney disease; N25.81 Secondary hyperparathyroidism of renal origin; E55.9 Vitamin D deficiency, unspecified
CPT/HCPCS: 36415; 80069; 82306; 82570; 83970; 84156